=== PATIENT | male | born 1935 | race American Indian/Alaskan Native ===

== ENCOUNTER 2017-12-14 16:02 | Inpatient (IN) | payer MEDICARE, OTHER ==
[2017-12-14 16:52] VITALS: BMI 34.5
--- NOTE | 2017-12-14 17:41 | ED PDOC ---
Arrival/HPI - General Chief Complaint: Weakness/Neurological Deficit Time Seen by Provider: 12/14/17 16:39 Historian: Patient, Other (DR. Canales) - History of Present Illness Narrative History of Present Illness (Text): you were treated in the ED today for history of prostrate cancer and sent by Dr. Ocasio for having lower extremity weakness but otherwise without any nausea/vomiting/headache/dizziness/difficulty breathing/chest pain/abdomen pain/ numbness/tingling/loss of limb or bowel or bladder function/pain with urination. 12/14/17 17:39 Time/Duration: Other (2 days) Past Medical History - Provider Review Nursing Documentation Reviewed: Yes - Travel History Have you recently traveled outside [place] w/in the past 3 mons?: No - Cardiac Hx Hypertension: Yes Hx Peripheral Vascular Disease: Yes (stent in right leg) - Neurological Hx Paralysis: No - Hematological/Oncological Hx Blood Transfusions: No Hx Blood Transfusion Reaction: No - Musculoskeletal/Rheumatological Hx Arthritis: Yes - Psychiatric Hx Emotional Abuse: No Hx Physical Abuse: No Hx Substance Use: No - Anesthesia Hx Anesthesia Reactions: No Hx Malignant Hyperthermia: No - Suicidal Assessment Feels Threatened In Home Enviroment: No Family/Social History - Physician Review Nursing Documentation Reviewed: Yes Family/Social History: No Known Family HX Smoking Status: Never Smoked Hx Alcohol Use: No Hx Substance Use: No Allergies/Home Meds Allergies/Adverse Reactions: Allergies No Known Allergies Allergy (Verified 12/14/17 16:52) Home Medications: Home Meds Medication Instructions Recorded Confirmed Amlodipine/Valsartan [Exforge 10 1 tab PO DAILY 12/23/13 12/14/17 mg-160 mg] Atorvastatin [Lipitor] 10 mg PO DAILY 03/07/15 12/14/17 Doxazosin [Cardura] 4 mg PO DAILY 03/07/15 12/14/17 Nebivolol [Bystolic] 5 mg PO DAILY 03/07/15 12/14/17 Warfarin [Coumadin] 6 mg PO DAILY 03/07/15 12/14/17 Allopurinol [Zyloprim] 300 mg PO DAILY 09/19/16 12/14/17 Donepezil HCl [Aricept ODT] 5 mg PO DAILY 09/19/16 12/14/17 Losartan Potassium [Cozaar] 100 mg PO DAILY 09/19/16 12/14/17 Pregabalin [Lyrica] 75 mg PO DAILY 09/19/16 12/14/17 amLODIPine [Norvasc] 5 mg PO DAILY 09/19/16 12/14/17 Review of Systems - Review of Systems Systems not reviewed;Unavailable: Acuity of Condition Constitutional: Normal Eyes: Normal ENT: Normal Respiratory: Normal Cardiovascular: Normal Gastrointestinal: Normal Genitourinary Male: Normal Musculoskeletal: Normal Skin: Normal Neurological: Normal, Other (lower legs weakness) Endocrine: Normal Hemo/Lymphatic: Normal Psychiatric: Normal Physical Exam Vital Signs Reviewed: Yes Vital Signs Temp Pulse Resp BP Pulse Ox 12/14/17 16:49 98.2 F 51 L 18 146/93 H 98 12/14/17 16:47 97.1 F L 51 L 18 146/73 98 Temperature: Afebrile Blood Pressure: Hypertensive Pulse: Regular Respiratory Rate: Normal Appearance: Positive for: Well-Appearing, Non-Toxic, Comfortable Pain Distress: None Mental Status: Positive for: Alert and Oriented X 3 - Systems Exam Head: Present: Atraumatic, Normocephalic Pupils: Present: PERRL Extroacular Muscles: Present: EOMI Conjunctiva: Present: Normal Ears: Present: Normal Mouth: Present: Moist Mucous Membranes Pharnyx: Present: Normal Nose (External): Present: Atraumatic Nose (Internal): Present: Normal Inspection Neck: Present: Normal Range of Motion Respiratory/Chest: Present: Clear to Auscultation, Good Air Exchange Cardiovascular: Present: Regular Rate and Rhythm Abdomen: No: Tenderness, Distention, Normal Bowel Sounds, Peritoneal Signs, Rebound, Guarding, McBurney's Point Tender, Rovsing's Sign Present, Hernias, Feeding Tubes, Ostomy Tubes, Mass/Organomegaly, Scars, Other (no pulsatile masses) Back: Present: Normal Inspection Upper Extremity: Present: Normal Inspection Lower Extremity: Present: Normal Inspection Neurological: Present: GCS=15, CN II-XII Intact, Speech Normal, Motor Func Grossly Intact Skin: Present: Warm, Normal Color Psychiatric: Present: Alert, Oriented x 3, Normal Insight, Normal Concentration Medical Decision Making ED Course and Treatment: you were treated in the ED today for history of prostrate cancer and sent by Dr. Ocasio for having lower extremity weakness but otherwise without any nausea/vomiting/headache/dizziness/difficulty breathing/chest pain/abdomen pain/ numbness/tingling/loss of limb or bowel or bladder function/pain with urination. You were otherwise breathing easily, pink/moist lips, smiling with your family and talking, good strength/sensation, alert/oriented, walking easily , clear lungs, no abdomen tenderness, no fever temp 97.1, stable heart rate 51, stable breathing rate 18, excellent oxygen level 98% room air, elevated blood pressure 146/73 which we recommend repeat in 2-3 days primary care office to determine further treatment, you have blood tests no infection count 3.7, stable blood level hemoglobin 15/platelets 147, stable chemistry, heart blood test normal range, INR 1.78 and ensure you review your warfarin/coumadin dose with your primary care physician tomorrow, radiology ct head and ct lumbar spine pending, ECG sinus bradycardia, observation done in the ED with improvement, counselled to monitor symptoms, discussed with Dr. Ocasio who stated if labs, ct imaging within normal limits then can discharge home or if patient feeling weak can admit to the hospitalist service. patient states feels a little weak with his cane. 12/14/17 17:43 12/14/17 19:12 12/14/17 19:12 12/14/17 19:[address] Phillips to followup CT head and lumbar spine and disposition. 12/14/17 20:05 - Lab Interpretations Lab Results: 12/14/17 17:38 12/14/17 17:38 Lab Results 12/14/17 18:54: Urine Color Yellow, Urine Appearance Clear, Urine pH 6.0, Ur Specific [place] >= 1.030, Urine Protein Trace H, Urine Glucose (UA) Negative, Urine Ketones Trace H, Urine Blood Negative, Urine Nitrate Negative, Urine Bilirubin Small H, Urine Urobilinogen 0.2, Ur Leukocyte Esterase Negative, Urine RBC 0 - 2, Urine WBC Negative, Ur Epithelial Cells 0 - 2 12/14/17 17:38: PT 20.5 H, INR 1.78 H, APTT 34.9 12/14/17 17:38: Sodium 140, Potassium 4.0, Chloride 106, Carbon Dioxide 26, Anion Gap 12, BUN 15, Creatinine 1.0, Est GFR ( Amer) > 60, Est GFR (Non- Af Amer) > 60, Random Glucose 90, Calcium 9.7, Magnesium 1.9, Total Bilirubin 0.7, AST 25, ALT 31, Alkaline Phosphatase 85, Lactate Dehydrogenase 444, Total Creatine Kinase 181, Troponin I 0.02, Total Protein 7.1, Albumin 3.7, Globulin 3.3, Albumin/Globulin Ratio 1.1 12/14/17 17:38: WBC 3.9 L, RBC 4.44, Hgb 15.0, Hct 43.8, MCV 98.6, MCH 33.8, MCHC 34.2, RDW 12.9, Plt Count 147, MPV 11.3 H, Gran % 36.5 L, Lymph % (Auto) 44.1 H, [place] % (Auto) 13.9 H, Eos % (Auto) 5.2 H, Baso % (Auto) 0.3, Gran # 1.42 , Lymph # 1.7, [place] # 0.5, Eos # 0.2, Baso # 0.01 I have reviewed the lab results: Yes - RAD Interpretation Radiology Orders: 12/14/17 16:44 HEAD W/O CONTRAST [CT] Stat LUMBAR SPINE W/O CONTRAST [CT] Stat - EKG Interpretation Interpreted by ED Physician: Yes (sinus bradycardia, flipped ii, iii, avf, v4, v5, v6) Type: 12 lead EKG NIHSS Stroke Scale 3 - Date/Time Evaluation Performed Date Performed: 12/14/17 When Was NIHSS Performed: Baseline - How Severe is the Stroke Level of Consciousness: 0=Alert LOC to Questions: 0=Both comments correct LOC to commands: 0=Obeys both correctly Best Gaze: 0=Normal Visual: 0=No visual loss Facial: 0=Normal Motor Arm - Left: 0=No drift Motor Arm - Right: 0=No drift Motor Leg - Left: 0=No drift Motor Leg - Right: 0=No drift Limb Ataxia: 0=Absent Sensory: 0=Normal Best Language: 0=No aphasia Dysarthia: 0=Normal articulation Extinction & Inattention (Neglect): 0=Normal, no object Score: 0 Disposition/Present on Arrival - Present on Arrival Any Indicators Present on Arrival: No History of DVT/PE: No History of Uncontrolled Diabetes: No Urinary Catheter: No History of Decub. Ulcer: No History Surgical Site Infection Following: None - Disposition Referrals: Master Gómez MD [Primary Care Provider] - Follow up with primary Forms: [employer] (Belizean)
[2017-12-14 17:51] LABS: BASO # 0.01 K/mm3 (0.0-2.0); BASO % 0.3 % (0.0-3.0); EOS # 0.2 (0.0-0.7); EOS % 5.2 % (1.5-5.0); GRAN # 1.42 (1.4-6.5); GRAN % 36.5 % (50.0-68.0); LYMPH # 1.7 (1.2-3.4); LYMPH % 44.1 % (22.0-35.0); MEAN CELL VOLUME 98.6 fl (80.0-105.0); MEAN CORPUSCULAR HEMOGLOBIN 33.8 pg (25.0-35.0); MEAN CORPUSCULAR HGB CONC 34.2 g/dl (31.0-37.0); MEAN PLATELET VOLUME 11.3 fl (7.0-11.0); MONO # 0.5 (0.1-0.6); MONO % 13.9 % (1.0-6.0); RBC 4.44 10^6/uL (3.5-6.1); RED CELL DISTRIBUTION WIDTH 12.9 % (11.5-14.5); WHITE BLOOD COUNT 3.9 10^3/ul (4.5-11.0)
[2017-12-14 18:08] LABS: INR 1.78 (0.93-1.08); PARTIAL THROMBOPLASTIN TIME 34.9 Seconds (25.1-36.5); PROTHROMBIN TIME 20.5 SECONDS (9.4-12.5)
[2017-12-14 18:19] LABS: ALB/GLOB RATIO 1.1 (1.1-1.8); ALBUMIN 3.7 g/dL (3.0-4.8); ALT/SGPT 31 U/L (7-56); AST/SGOT 25 U/L (17-59); BLOOD UREA NITROGEN 15 mg/dL (7-21); CALCIUM 9.7 mg/dL (8.4-10.5); GFR AFRICAN-AMERICAN > 60; GFR NON-AFRICAN AMERICAN > 60; MAGNESIUM 1.9 mg/dL (1.7-2.2)
[2017-12-14 18:35] LABS: TROPONIN I 0.02 ng/mL
[2017-12-14 19:08] LABS: URINE BILIRUBIN SMALL (NEGATIVE); URINE BLOOD NEGATIVE (NEGATIVE); URINE GLUCOSE (UA) NEGATIVE (NEGATIVE); URINE LEUKOCYTE ESTERASE NEGATIVE Leu/uL (NEGATIVE); URINE NITRATE NEGATIVE (NEGATIVE); URINE PROTEIN TRACE mg/dL (<30 mg/dL); URINE UROBILINOGEN 0.2 E.U./dL (<1 E.U./dL)
[2017-12-14 19:13] LABS: URINE APPEARANCE CLEAR (CLEAR); URINE COLOR YELLOW (YELLOW)
[2017-12-14 19:43] LABS: URINE EPITHELIAL CELLS 0 - 2 /hpf (0-5); URINE RBC 0 - 2 /hpf (0-2); URINE WBC NEGATIVE /hpf (0-6)
--- NOTE | 2017-12-14 20:14 | CT ---
EXAM: CT Head Without Intravenous Contrast EXAM DATE/TIME: 12/14/2017 4:44 PM CLINICAL HISTORY: 82 years old, male; Signs and symptoms; Weakness, extremity; Bilateral; Additional info: 82yom, lower extremity weakness TECHNIQUE: Axial computed tomography images of the head/brain without intravenous contrast. All CT scans at this facility use one or more dose reduction techniques, viz.: automated exposure control; ma/kV adjustment per patient size (including targeted exams where dose is matched to indication; i.e. head); or iterative reconstruction technique. Coronal and sagittal reformatted images were created and reviewed. COMPARISON: No relevant prior studies available. FINDINGS: BRAIN: 1.4 cm focal area of hypodensity in the right basal ganglia, in the lentiform nucleus medially, suspicious for a lacunar infarct. This is indeterminate in age by CT. Somewhat extensive areas of low density in the white matter bilaterally. This is a nonspecific finding, but is most likely due to moderate to severe chronic small vessel ischemic changes, in a patient of this age. No significant acute abnormality identified. No acute hemorrhage seen within the brain. No acute extra-axial fluid collections visualized. No evidence of significant mass effect within the brain. VENTRICLES: No evidence of significant hydrocephalus. BONES/JOINTS: No acute fractures or other acute bony abnormality noted. SOFT TISSUES: No acute abnormality of the visualized soft tissues is seen. SINUSES: Visualized paranasal sinuses appear clear. MASTOID AIR CELLS: Mastoid air cells appear clear. IMPRESSION: - Lacunar infarct in the right basal ganglia, which is indeterminate in age by CT. If there is clinical concern for an acute lacunar infarct, consider MRI for further evaluation. - No evidence of intracranial hemorrhage or significant intracranial mass effect. - See above for remaining findings.
--- NOTE | 2017-12-14 20:27 | CT ---
EXAM: CT Lumbar Spine Without Intravenous Contrast EXAM DATE/TIME: 12/14/2017 4:44 PM CLINICAL HISTORY: 82 years old, male; Signs and symptoms; Weakness; Additional info: 82yom, lower extremity weakness TECHNIQUE: Axial computed tomography images of the lumbar spine without intravenous contrast. All CT scans at this facility use one or more dose reduction techniques, viz.: automated exposure control; ma/kV adjustment per patient size (including targeted exams where dose is matched to indication; i.e. head); or iterative reconstruction technique. Coronal and sagittal reformatted images were created and reviewed. COMPARISON: No relevant prior studies available. FINDINGS: VERTEBRAE: No acute fractures are seen. No evidence of significant vertebral subluxation. No evidence of acute vertebral compression fractures. DISCS/SPINAL CANAL/NEURAL FORAMINA: Marked, multilevel degenerative disc disease. There are large posterior osteophytes at L1-L2 centrally and on the left at T11-T12, which do appear to be causing spinal canal stenosis. Note that the spinal soft tissues, such as the intervertebral disks and contents of the spinal canal, are suboptimally evaluated by CT compared with MRI. Marked, multilevel facet joint degenerative changes of the lower lumbar spine. SOFT TISSUES: Fluid/edema is seen in the lumbar subcutaneous fat posteriorly, most likely representing dependent soft tissue edema. VASCULATURE: Vascular stent noted in the right external iliac artery REPRODUCTIVE: Evidence of prior prostatectomy and bilateral pelvic lymph node dissection. KIDNEYS AND URETERS: Low density lesion in the left kidney, most likely a cyst. 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 Bony structures appear demineralized. IMPRESSION: - No evidence of acute lumbar spine fractures or other acute bony abnormality. - Marked, multilevel degenerative disc disease. 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 - See above for remaining findings.
--- NOTE | 2017-12-14 21:48 | ED PDOC ---
Physical Exam Vital Signs Temp Pulse Resp BP Pulse Ox 12/14/17 20:19 97.5 F L 48 L 18 140/85 99 12/14/17 16:49 98.2 F 51 L 18 146/93 H 98 12/14/17 16:47 97.1 F L 51 L 18 146/73 98 Medical Decision Making ED Course and Treatment: 12/14/17 19:00 Case endorsed to me by Dr. Bobby, pending CT scan, re-assessment, and disposition. 12/14/17 22:00 CT Head: BRAIN: 1.4 cm focal area of hypodensity in the right basal ganglia, in the lentiform nucleus medially, suspicious for a lacunar infarct. This is indeterminate in age by CT. Somewhat extensive areas of low density in the white matter bilaterally. This is a nonspecific finding, but is most likely due to moderate to severe chronic small vessel ischemic changes, in a patient of this age. No significant acute abnormality identified. No acute hemorrhage seen within the brain. No acute extra-axial fluid collections visualized. No evidence of significant mass effect within the brain. VENTRICLES: No evidence of significant hydrocephalus. BONES/JOINTS: No acute fractures or other acute bony abnormality noted. SOFT TISSUES: No acute abnormality of the visualized soft tissues is seen. SINUSES: Visualized paranasal sinuses appear clear. MASTOID AIR CELLS: Mastoid air cells appear clear. IMPRESSION: - Lacunar infarct in the right basal ganglia, which is indeterminate in age by CT. If there is clinical concern for an acute lacunar infarct, consider MRI for further evaluation. - No evidence of intracranial hemorrhage or significant intracranial mass effect. - See above for remaining findings. CT Lumbar Spine: VERTEBRAE: No acute fractures are seen. No evidence of significant vertebral subluxation. No evidence of acute vertebral compression fractures. DISCS/SPINAL CANAL/NEURAL FORAMINA: Marked, multilevel degenerative disc disease. There are large posterior osteophytes at L1-L2 centrally and on the left at T11-T12, which do appear to be causing spinal canal stenosis. Note that the spinal soft tissues, such as the intervertebral disks and contents of the spinal canal, are suboptimally evaluated by CT compared with MRI. Marked, multilevel facet joint degenerative changes of the lower lumbar spine. SOFT TISSUES: Fluid/edema is seen in the lumbar subcutaneous fat posteriorly, most likely representing dependent soft tissue edema. VASCULATURE: Vascular stent noted in the right external iliac artery REPRODUCTIVE: Evidence of prior prostatectomy and bilateral pelvic lymph node dissection. KIDNEYS AND URETERS: Low density lesion in the left kidney, most likely a cyst. 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 Bony structures appear demineralized. IMPRESSION: - No evidence of acute lumbar spine fractures or other acute bony abnormality. - Marked, multilevel degenerative disc disease. 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 - See above for remaining findings. 12/14/17 22:[address] Escalante, who is aware and agrees with plan. Accepts pt in to hospitalist service. Pt will go to [facility] observation for gait instability and prostate cancer. residential lawn specialist notified. - Lab Interpretations Lab Results: 12/14/17 17:38 12/14/17 17:38 Lab Results 12/14/17 18:54: Urine Color Yellow, Urine Appearance Clear, Urine pH 6.0, Ur Specific [place] >= 1.030, Urine Protein Trace H, Urine Glucose (UA) Negative, Urine Ketones Trace H, Urine Blood Negative, Urine Nitrate Negative, Urine Bilirubin Small H, Urine Urobilinogen 0.2, Ur Leukocyte Esterase Negative, Urine RBC 0 - 2, Urine WBC Negative, Ur Epithelial Cells 0 - 2 12/14/17 17:38: PT 20.5 H, INR 1.78 H, APTT 34.9 12/14/17 17:38: Sodium 140, Potassium 4.0, Chloride 106, Carbon Dioxide 26, Anion Gap 12, BUN 15, Creatinine 1.0, Est GFR ( Amer) > 60, Est GFR (Non- Af Amer) > 60, Random Glucose 90, Calcium 9.7, Magnesium 1.9, Total Bilirubin 0.7, AST 25, ALT 31, Alkaline Phosphatase 85, Lactate Dehydrogenase 444, Total Creatine Kinase 181, Troponin I 0.02, Total Protein 7.1, Albumin 3.7, Globulin 3.3, Albumin/Globulin Ratio 1.1 12/14/17 17:38: WBC 3.9 L, RBC 4.44, Hgb 15.0, Hct 43.8, MCV 98.6, MCH 33.8, MCHC 34.2, RDW 12.9, Plt Count 147, MPV 11.3 H, Gran % 36.5 L, Lymph % (Auto) 44.1 H, [place] % (Auto) 13.9 H, Eos % (Auto) 5.2 H, Baso % (Auto) 0.3, Gran # 1.42 , Lymph # 1.7, [place] # 0.5, Eos # 0.2, Baso # 0.01 - RAD Interpretation Radiology Orders: 12/14/17 16:44 HEAD W/O CONTRAST [CT] Stat LUMBAR SPINE W/O CONTRAST [CT] Stat Disposition/Present on Arrival - Present on Arrival Any Indicators Present on Arrival: No History of DVT/PE: No History of Uncontrolled Diabetes: No Urinary Catheter: No History of Decub. Ulcer: No History Surgical Site Infection Following: None - Disposition Have Diagnosis and Disposition been Completed?: Yes Diagnosis: Gait instability, Prostate CA Disposition: HOSPITALIZED Disposition Time: 22:32 Patient Plan: Observation Patient Problems: Current Active Problems Problem Status Onset Gait instability Acute Prostate CA Acute Condition: STABLE Referrals: Master Gómez MD [Primary Care Provider] - Follow up with primary Forms: [employer] (Bulgarian)
--- NOTE | 2017-12-14 22:54 | CP.PCM.HP ---
History of Present Illness - History of Present Illness History of Present Illness: 82 year old male with past medical history of HTN, Gout, Neuropathy, prostate cancer s/p prostate removal, blood clot in leg (stent in right external iliac artery), memory loss presents to the ED with several days of weakness in the legs. Patient states that the weakness began 3 days ago and is in both legs. He states he uses a can to ambulate, but is having trouble moving and going up stairs. He says he "does not have power to lift up his legs". He denies any recent trauma, sickness, changes in appetite, or recent medication changes. Patient also denies any numbness, tingling, dizziness, headaches, change in vision, chest pain, shortness of breath, abdominal pain or any other complaints at this time. PMD: Dr. Gómez PMH:HTN, Gout, Neuropathy, prostate cancer s/p prostate removal, memory lossblood clot in leg (stent in right external iliac artery) PSH:prostate removal Allergies: NKDA Family: non contributory Social: denies alcohol, tobacco, or illicit drug use, lives with ambulates with cane Medications: donepezil, lyrica, warfarin, cardura, cozaar, lipitor, allopurinol Present on Admission - Present on Admission Any Indicators Present on Admission: Yes History of DVT/PE: Yes Review of Systems - Constitutional Constitutional: Weakness. absent: Anorexia, Chills, Fatigue, Fever, Frequent Falls, Headache, Night Sweats - EENT Eyes: absent: Blurred Vision, Change in Vision Ears: absent: Dizziness Nose/Mouth/Throat: absent: Nasal Congestion - Cardiovascular Cardiovascular: absent: Chest Pain, Dyspnea, Irregular Heart Rhythm, Lightheadedness, Palpitations, Radiating Pain, Rapid Heart Rate - Respiratory Respiratory: absent: Cough, Dyspnea - Gastrointestinal Gastrointestinal: absent: Diarrhea, Nausea, Vomiting - Genitourinary Genitourinary: absent: Dysuria - Musculoskeletal Musculoskeletal: Limited Range of Motion, Muscle Weakness. absent: Arthralgias , Numbness, Tingling - Neurological Neurological: absent: Confusion, Disequilibrium, Dizziness, Loss of Vision, Memory Loss, Syncope Past Patient History - Past Social History Smoking Status: Never Smoked - CARDIAC Hx Hypertension: Yes Hx Peripheral Vascular Disease: Yes (stent in right leg) - NEUROLOGICAL Hx Paralysis: No - HEMATOLOGICAL/ONCOLOGICAL Hx Blood Transfusions: No Hx Blood Transfusion Reaction: No - MUSCULOSKELETAL/RHEUMATOLOGICAL Hx Arthritis: Yes - PSYCHIATRIC Hx Emotional Abuse: No Hx Physical Abuse: No Hx Substance Use: No - SURGICAL HISTORY Hx Surgeries: Yes - ANESTHESIA Hx Anesthesia Reactions: No Hx Malignant Hyperthermia: No Meds Allergies/Adverse Reactions: Allergies Allergy/AdvReac Type Severity Reaction Status Date / Time No Known Allergies Allergy Verified 12/14/17 16:52 Physical Exam - Constitutional Appears: Non-toxic, No Acute Distress - Head Exam Head Exam: ATRAUMATIC, NORMAL INSPECTION, NORMOCEPHALIC - Eye Exam Eye Exam: EOMI, Normal appearance Pupil Exam: NORMAL ACCOMODATION - ENT Exam ENT Exam: Mucous Membranes Moist - Neck Exam Neck exam: Positive for: Normal Inspection - Respiratory Exam Respiratory Exam: Clear to Auscultation Bilateral, NORMAL BREATHING PATTERN - Cardiovascular Exam Cardiovascular Exam: REGULAR RHYTHM, +S1, +S2 - GI/Abdominal Exam GI & Abdominal Exam: Normal Bowel Sounds, Soft. absent: Tenderness - Extremities Exam Extremities exam: Positive for: normal capillary refill, normal inspection, pedal pulses present. Negative for: calf tenderness, pedal edema, tenderness - Neurological Exam Neurological exam: Alert, CN II-XII Intact, Oriented x3 Additional comments: upper and lower extremity sensation and motor strength intact bilaterally (5/5) Results - Vital Signs Recent Vital Signs: Last Vital Signs Temp 97.5 F L 12/14/17 20:19 Pulse 48 L 12/14/17 20:19 Resp 18 12/14/17 20:19 BP 140/85 12/14/17 20:19 Pulse Ox 99 12/14/17 20:19 - Labs Result Diagrams: 12/14/17 17:38 12/14/17 17:38 Assessment & Plan - Assessment and Plan (Free Text) Assessment: 82 year old male with past medical history of HTN, Gout, Neuropathy, prostate cancer s/p prostate removal, blood clot in leg (stent in right external iliac artery), memory loss presents to the ED with several days of weakness in the legs. Patient states that the weakness began 3 days ago and is in both legs. Plan: 1. Leg Weakness -EKG pending official read -Labs WNL -CT Lumbar Spine: no evidence of acute lumbar fracture or other bony abnormalities. Degenerative disc changes, osteoarthritic changes of hip bilaterally, stent in right external iliac artery -CT head: lacunar infarct in right basal ganglia, indeterminate age, no hemorrhage -Neurology consulted, Korya, follow recs -Physical therapy consulted -fall precautions -CK level pending -continue home lyrica 2. Gout-chronic -continue home allopurinol 3. HTN-chronic -continue home meds 4. Stent in Right External Iliac Artery -IRN theraputic -continue warfarin 6mg -daily INR -conitnue lipitor 5. Memory Loss-chronic -continue home donepezil GI/DVT Prophylaxis -Protonix -Warfarin
[2017-12-15] MEDS: Pantoprazole 40 mg EC Tab PO SCH (06:12)
[2017-12-15 07:32] LABS: BASO # 0.01 K/mm3 (0.0-2.0); BASO % 0.2 % (0.0-3.0); EOS # 0.3 (0.0-0.7); EOS % 6.9 % (1.5-5.0); GRAN # 1.35 (1.4-6.5); GRAN % 33.5 % (50.0-68.0); HEMOGLOBIN 13.8 g/dL (14.0-18.0); LYMPH # 1.9 (1.2-3.4); MEAN CELL VOLUME 98.8 fl (80.0-105.0); MEAN CORPUSCULAR HGB CONC 33.4 g/dl (31.0-37.0); MEAN PLATELET VOLUME 10.9 fl (7.0-11.0); MONO # 0.5 (0.1-0.6); MONO % 13.4 % (1.0-6.0); RBC 4.18 10^6/uL (3.5-6.1)
[2017-12-15 07:37] LABS: INR 2.08 (0.93-1.08); PROTHROMBIN TIME 24.3 SECONDS (9.4-12.5)
[2017-12-15 07:44] LABS: ALBUMIN 3.2 g/dL (3.0-4.8); ALT/SGPT 28 U/L (7-56); AST/SGOT 25 U/L (17-59); BLOOD UREA NITROGEN 12 mg/dL (7-21); CALCIUM 9.2 mg/dL (8.4-10.5); GFR AFRICAN-AMERICAN > 60; GFR NON-AFRICAN AMERICAN > 60
[2017-12-15] MEDS ORDERED: Potassium Chloride 20 mEq ER Tab PO ONE (08:50)
--- NOTE | 2017-12-15 08:51 | CP.PCM.CON ---
<Marietta Haro - Last Filed: 12/15/17 10:31> History of Present Illness - History of Present Illness History of Present Illness: PGY-[address] Barron Consult: lacuna infarct, chronic vs acute Mr Eren Alves, 82 M, with PMH HTN, Gout, Neuropathy, prostate cancer s/p prostate removal, PAD, DVT, PAD s/p stent in right external iliac artery, memory loss presents to the ED c/o lightheadedness with weakness of both legs. Both lightheadedness (no room spinning) and lower extremities weakness started last Thursday, 4 days ago. He states he uses a cane to ambulate, but is having trouble moving and going up stairs. He says he "does not have power to lift up his legs". Pt saw PMD on Thursday who advised pt to come to the hospital. ROS - (+) occasional choking while eating Denies any recent trauma, sickness, changes in appetite, skipping meds, or recent medication changes. Patient also denies any numbness, tingling, dizziness, headaches, change in vision, chest pain, shortness of breath, abdominal pain or any other complaints at this time. On Admission: NIHSS 0 bradycardia 42-52. BP 162/75 CBC significant for leukopenia at 3.9. CK normal at 181. U/A (+) ketone ECG sinus bradycardia CT Lumbar Spine: no evidence of acute lumbar fracture or other bony abnormalities. Degenerative disc changes, osteoarthritic changes of hip bilaterally, stent in right external iliac artery CT head: Possible Chronic lacunar infarct in right basal ganglia, indeterminate age, no hemorrhage PMD: Dr. Gómez PMH: HTN Gout on allopurinol Neuropathy on lyrica prostate cancer s/p prostate removal, 1994 memory loss on donepezil DVT on warfarin, PVD s/p stent in right external iliac artery PSH: prostate removal lipoma removal Allergies: NKDA Family: non contributory Social: Former smoker, quit 30years ago. Denies alcohol, or illicit drug use, lives with ambulates with cane Medications: Bistolic 5, Amlodipine/Valsartan 10-160, Losartan 100, norvasc 5 (repeat??) Lipitor 10 Doxazosin 4 Warfarin 6 Donepeil 5 Allupurinol 300 Review of Systems - Review of Systems All systems: reviewed and no additional remarkable complaints except Review of Systems: per HPI Past Patient History - Past Social History Smoking Status: Never Smoked - CARDIAC Hx Cardiac Disorders: Yes Hx Hypertension: Yes Hx Peripheral Vascular Disease: Yes (stent in right leg) - PULMONARY Hx Respiratory Disorders: No - NEUROLOGICAL Hx Neurological Disorder: No - HEENT Hx HEENT Problems: No - RENAL Hx Chronic Kidney Disease: No - ENDOCRINE/METABOLIC Hx Endocrine Disorders: No - HEMATOLOGICAL/ONCOLOGICAL Hx Blood Disorders: No - INTEGUMENTARY Hx Dermatological Problems: No - MUSCULOSKELETAL/RHEUMATOLOGICAL Hx Arthritis: Yes Hx Falls: No - GENITOURINARY/GYNECOLOGICAL Hx Genitourinary Disorders: Yes Hx Prostate Problems: Yes Other/Comment: prostate cancer - PSYCHIATRIC Hx Emotional Abuse: No Hx Physical Abuse: No Hx Substance Use: No - SURGICAL HISTORY Hx Surgeries: Yes - ANESTHESIA Hx Anesthesia Reactions: No Hx Malignant Hyperthermia: No Meds Allergies/Adverse Reactions: Allergies Allergy/AdvReac Type Severity Reaction Status Date / Time No Known Allergies Allergy Verified 12/14/17 16:52 - Medications Medications: Current Medications Allopurinol (Zyloprim) 300 mg PO DAILY [facility] Amlodipine Besylate (Norvasc) 10 mg PO DAILY [facility] Atorvastatin Calcium (Lipitor) 10 mg PO DAILY [facility] Doxazosin Mesylate (Cardura) 4 mg PO DAILY [facility] Losartan Potassium (Cozaar) 100 mg PO DAILY [facility] Non-Formulary Medication (Donepezil Hcl [Aricept Odt]) 5 mg PO DAILY [facility] Pantoprazole Sodium (Protonix Ec Tab) 40 mg PO 0600 [facility] Last Admin: 12/15/17 06:12 Dose: 40 mg Pregabalin (Lyrica) 75 mg PO DAILY [facility] Warfarin Sodium (Coumadin) 6 mg PO 1800 [facility] PRN Reason: Protocol Physical Exam - Constitutional Appears: No Acute Distress - Head Exam Head Exam: ATRAUMATIC, NORMAL INSPECTION, NORMOCEPHALIC - Eye Exam Eye Exam: EOMI, Normal appearance, PERRL. absent: Scleral icterus Pupil Exam: NORMAL ACCOMODATION - ENT Exam ENT Exam: Mucous Membranes Moist - Neck Exam Additional comments: supple - Respiratory Exam Respiratory Exam: Clear to Auscultation Bilateral, NORMAL BREATHING PATTERN. absent: Rales, Rhonchi, Wheezes - Cardiovascular Exam Cardiovascular Exam: REGULAR RHYTHM, +S1, +S2 - GI/Abdominal Exam GI & Abdominal Exam: Normal Bowel Sounds, Soft. absent: Tenderness - Extremities Exam Extremities exam: Negative for: pedal edema - Neurological Exam Neurological exam: Alert, CN II-XII Intact, Oriented x3, Reflexes Normal Additional comments: Speech: Mild slurring. tongue mid line recall: 3/3 Motor: LLE 4/5, others 5/5 sensory: intact [id number] coordination: intact Rapid alt movment: intact Results - Vital Signs Recent Vital Signs: Last Vital Signs Temp 97.9 F 12/14/17 22:50 Pulse 43 L 12/15/17 00:00 Resp 20 12/15/17 01:04 BP 158/83 H 12/15/17 00:00 Pulse Ox 98 12/15/17 00:00 - Labs Result Diagrams: 12/15/17 06:45 12/15/17 06:45 Labs: Laboratory Results - last 24 hr 12/15/17 12/15/17 12/15/17 06:45 06:45 06:45 WBC 4.0 L RBC 4.18 Hgb 13.8 L Hct 41.3 L MCV 98.8 MCH 33.0 MCHC 33.4 RDW 13.0 Plt Count 126 MPV 10.9 Gran % 33.5 L Lymph % (Auto) 46.0 H Forest % (Auto) 13.4 H Eos % (Auto) 6.9 H Baso % (Auto) 0.2 Gran # 1.35 L Lymph # 1.9 Forest # 0.5 Eos # 0.3 Baso # 0.01 PT 24.3 H INR 2.08 H Sodium 141 Potassium 3.5 L Chloride 108 H Carbon Dioxide 28 Anion Gap 9 L BUN 12 Creatinine 1.0 Est GFR ( Amer) > 60 Est GFR (Non-Af Amer) > 60 Random Glucose 88 Calcium 9.2 Total Bilirubin 0.7 AST 25 ALT 28 Alkaline Phosphatase 65 Total Protein 6.4 Albumin 3.2 Globulin 3.2 Albumin/Globulin Ratio 1.0 L Assessment & Plan - Assessment and Plan (Free Text) Plan: Mr Eren Alves, 82 M, with PMH HTN, Gout, PAD s/p stent in right external iliac artery, with Neuropathy on lyrica, prostate cancer s/p prostate removal, DVT on warfarin, memory loss presents to the ED c/o lightheadedness with weakness of both legs. ROS (+) occasional choking while eating. Physical examination review LLE motor 4/5. On admitssion, pt was bradycardic @ 42-52. BP 162/75. U/A (+) ketone. CT head: lacunar infarct in right basal ganglia, indeterminate age, no hemorrhage generalized weakend synmpta Acute R basal ganglia ischemic stroke - Remote tele - __pending MRI head; lumbar MRI - ASA - Lipitor increased to 40 - Continue warfarin for DVT prophylaxis - Keep SBP 120-130 - PT/OT/ST - Recommend subacyte acute rehab s/r/d/w Dr. Barron <Eugene Barron - Last Filed: 12/15/17 11:30> Meds - Medications Medications: Current Medications Allopurinol (Zyloprim) 300 mg PO DAILY [facility] Amlodipine Besylate (Norvasc) 10 mg PO DAILY [facility] Aspirin (Ecotrin) 81 mg PO DAILY [facility] Atorvastatin Calcium (Lipitor) 10 mg PO DAILY [facility] Doxazosin Mesylate (Cardura) 4 mg PO DAILY [facility] Losartan Potassium (Cozaar) 100 mg PO DAILY [facility] Non-Formulary Medication (Donepezil Hcl [Aricept Odt]) 5 mg PO DAILY [facility] Pantoprazole Sodium (Protonix Ec Tab) 40 mg PO 0600 [facility] Last Admin: 12/15/17 06:12 Dose: 40 mg Pregabalin (Lyrica) 75 mg PO DAILY [facility] Warfarin Sodium (Coumadin) 6 mg PO 1800 [facility] PRN Reason: Protocol Results - Vital Signs Recent Vital Signs: Last Vital Signs Temp 97.8 F 12/15/17 07:00 Pulse 60 12/15/17 07:00 Resp 20 12/15/17 07:00 BP 146/65 12/15/17 07:00 Pulse Ox 99 12/15/17 07:00 - Labs Result Diagrams: 12/15/17 06:45 12/15/17 06:45 Labs: Laboratory Results - last 24 hr 12/15/17 12/15/17 12/15/17 06:45 06:45 06:45 WBC 4.0 L RBC 4.18 Hgb 13.8 L Hct 41.3 L MCV 98.8 MCH 33.0 MCHC 33.4 RDW 13.0 Plt Count 126 MPV 10.9 Gran % 33.5 L Lymph % (Auto) 46.0 H Forest % (Auto) 13.4 H Eos % (Auto) 6.9 H Baso % (Auto) 0.2 Gran # 1.35 L Lymph # 1.9 Forest # 0.5 Eos # 0.3 Baso # 0.01 PT 24.3 H INR 2.08 H Sodium 141 Potassium 3.5 L Chloride 108 H Carbon Dioxide 28 Anion Gap 9 L BUN 12 Creatinine 1.0 Est GFR ( Amer) > 60 Est GFR (Non-Af Amer) > 60 Random Glucose 88 Calcium 9.2 Total Bilirubin 0.7 AST 25 ALT 28 Alkaline Phosphatase 65 Troponin I Total Protein 6.4 Albumin 3.2 Globulin 3.2 Albumin/Globulin Ratio 1.0 L Triglycerides Cholesterol LDL Cholesterol Direct HDL Cholesterol 12/15/17 12/15/17 06:50 07:00 WBC RBC Hgb Hct MCV MCH MCHC RDW Plt Count MPV Gran % Lymph % (Auto) Forest % (Auto) Eos % (Auto) Baso % (Auto) Gran # Lymph # Forest # Eos # Baso # PT INR Sodium Potassium Chloride Carbon Dioxide Anion Gap BUN Creatinine Est GFR ( Amer) Est GFR (Non-Af Amer) Random Glucose Calcium Total Bilirubin AST ALT Alkaline Phosphatase Troponin I 0.02 Total Protein Albumin Globulin Albumin/Globulin Ratio Triglycerides 138 Cholesterol 175 LDL Cholesterol Direct 115 HDL Cholesterol 27 L Assessment & Plan - Assessment and Plan (Free Text) Plan: SYMPTOMS SEEM SECONDARY TO DECONDITIONED STATED SUPERIMPOSED UNDERLYING LUMBOSACRAL DJD. CT HEAD INFARCT SEEMS OLD IN THE RIGHT BASAL GANGLIA. BRADYCARDIA IS PRESENT, EVALUATE WITH CARDIOLOGY. RECOMMEND: MRI BRAIN TO ASSESS FOR ANY ACUTE INFARCT/ MRI LS AND T SPINE TO SEE ANY ACUTE DISC DISEASE CAUSING SYMPTOMS. PT/TO EVALUATION. C/W ASA 81 MG AND WARFARIN WITH LIPITOR FOR STROKE PREVENTION.
[2017-12-15] MEDS ORDERED: Non Formulary Medication (Amlodipine/Valsartan [Exforge 10-160 Mg Tablet] 1 TAB) PO SCH (10:00)
[2017-12-15 10:15] LABS: HDL CHOLESTEROL 27 mg/dL (29-60)
--- NOTE | 2017-12-15 10:18 | CP.PCM.PN ---
<Jules Samaniego - Last Filed: 12/15/17 11:02> Subjective - Date & Time of Evaluation Date of Evaluation: 12/15/17 Time of Evaluation: 07:30 - Subjective Subjective: Jules Samaniego DO PGY1 - IM Progress Note Patient seen and examined at bedside. Patient was admitted yesterday for weakness. Today, patient reports that weakness started suddenly on Thursday (4 days ago) with sudden onset slurred speech. He denies vision changes, hearing loss, chest pain, shortness of breath, palpitations. Symptoms improved gradually , but he still has some weakness. Today, he feels as though his symptoms overall are improved, but still has some weakness. He denies any headache or back pain. He is having difficulty sitting up in bed due to weakness. Denies new onset urinary incontinence, saddle anaesthesia, or bowel incontinence. Objective - Vital Signs/Intake and Output Vital Signs (last 24 hours): Temp Pulse Resp BP Pulse Ox 97.8 F 60 20 146/65 99 12/15/17 07:00 12/15/17 07:00 12/15/17 07:00 12/15/17 07:00 12/15/17 07:00 Intake and Output: 12/15/17 12/15/17 06:59 18:59 Intake Total 240 Output Total 400 Balance -160 - Medications Medications: Current Medications Allopurinol (Zyloprim) 300 mg PO DAILY [facility] Amlodipine Besylate (Norvasc) 10 mg PO DAILY [facility] Aspirin (Ecotrin) 81 mg PO DAILY [facility] Atorvastatin Calcium (Lipitor) 10 mg PO DAILY [facility] Doxazosin Mesylate (Cardura) 4 mg PO DAILY [facility] Losartan Potassium (Cozaar) 100 mg PO DAILY [facility] Non-Formulary Medication (Donepezil Hcl [Aricept Odt]) 5 mg PO DAILY [facility] Pantoprazole Sodium (Protonix Ec Tab) 40 mg PO 0600 [facility] Last Admin: 12/15/17 06:12 Dose: 40 mg Pregabalin (Lyrica) 75 mg PO DAILY [facility] Warfarin Sodium (Coumadin) 6 mg PO 1800 [facility] PRN Reason: Protocol - Labs Labs: 12/15/17 06:45 12/15/17 06:45 PT 24.3 SECONDS (9.4-12.5) H 12/15/17 06:45 INR 2.08 (0.93-1.08) H 12/15/17 06:45 APTT 34.9 Seconds (25.1-36.5) 12/14/17 17:38 - Constitutional Appears: Non-toxic, No Acute Distress - Head Exam Head Exam: ATRAUMATIC, NORMOCEPHALIC - Eye Exam Eye Exam: EOMI, Normal appearance, PERRL - ENT Exam ENT Exam: Mucous Membranes Moist - Neck Exam Neck Exam: Normal Inspection - Respiratory Exam Respiratory Exam: Clear to Ausculation Bilateral, NORMAL BREATHING PATTERN - Cardiovascular Exam Cardiovascular Exam: RRR, +S1, +S2 - GI/Abdominal Exam GI & Abdominal Exam: Soft, Normal Bowel Sounds. absent: Tenderness - Extremities Exam Extremities Exam: absent: Calf Tenderness, Pedal Edema - Neurological Exam Neurological Exam: Alert, Awake, CN II-XII Intact, Oriented x3 Neuro motor strength exam: Left Upper Extremity: 4, Right Upper Extremity: 5, Left Lower Extremity: 4, Right Lower Extremity: 5 Additional comments: Left sided [id number] dysmetria Truncal weakness - Psychiatric Exam Psychiatric exam: Normal Affect, Normal Mood - Skin Skin Exam: Dry, Intact, Normal Color Assessment and Plan - Assessment and Plan (Free Text) Assessment: 82 year old male with past medical history of HTN, Gout, Neuropathy, prostate cancer s/p prostate removal, DVT, PAD s/p stent in right external iliac artery, CHF with dilated cardiomyopathy, paroxysmal atrial fibrillation, memory loss presents to the ED with several days of weakness in the legs. Patient states that the weakness began 3 days ago and is in both legs. R basal gangliar lacunar infarct noted on CT head Plan: 1. Leg Weakness -Likely 2/2 acute CVA vs spinal cord compression vs deconditioning -EKG shows sinus bradycardia; pending official read -Repeat EKG today unchanged from yesterday -CT head: lacunar infarct in right basal ganglia, indeterminate age, no hemorrhage; not present on head CT in 2014 -CT L spine: multilevel degenerative disk disease, bilateral hip OA -Subtle left sided weakness and finger to nose dysmetria on exam -Ordered brain MRI w/wo contrast and L spine MRI w/o contrast to r/o cord compression -Start ASA 81mg daily -Physical therapy eval/treat -Fall precautions -Neuro on consult, appreciate recs 2. Gout-chronic -Continue home allopurinol 3. HTN-chronic -continue home meds -hold BB; currently bradycardic 4. h/o DVT -IRN theraputic -Continue warfarin 6mg -Daily INR 5. h/o PAD -Continue statin -Start ASA, as above 6. h/o CHF with dilated cardiomyopathy -Last echo and stress test from 2015 with LVEF 35% -Currently holding BB; patient is bradycardic overnight and this morning -Continue statin -Start ASA as above -Requested cardio consult; appreciate recs 7. h/o Paroxysmal atrial fibrillation -Not currently in afib -INR therapeutic on warfarin 6. Memory Loss-chronic -Continue home donepezil GI/DVT Prophylaxis -Protonix -Warfarin Patient seen, discussed, and reviewed with attending Dr. Garces <Onesimo Garces - Last Filed: 12/15/17 18:17> Objective - Vital Signs/Intake and Output Vital Signs (last 24 hours): Temp Pulse Resp BP Pulse Ox 98.5 F 50 L 20 146/65 98 12/15/17 16:00 12/15/17 16:00 12/15/17 16:00 12/15/17 16:18 12/15/17 16:00 - Medications Medications: Current Medications Allopurinol (Zyloprim) 300 mg PO DAILY [facility] Last Admin: 12/15/17 16:19 Dose: 300 mg Amlodipine Besylate (Norvasc) 10 mg PO DAILY [facility] Last Admin: 12/15/17 16:18 Dose: 10 mg Aspirin (Ecotrin) 81 mg PO DAILY [facility] Last Admin: 12/15/17 16:19 Dose: 81 mg Atorvastatin Calcium (Lipitor) 80 mg PO DIN [facility] Doxazosin Mesylate (Cardura) 4 mg PO DAILY [facility] Last Admin: 12/15/17 13:34 Dose: Not Given Losartan Potassium (Cozaar) 100 mg PO DAILY [facility] Last Admin: 12/15/17 16:19 Dose: 100 mg Non-Formulary Medication (Donepezil Hcl [Aricept Odt]) 5 mg PO DAILY [facility] Last Admin: 12/15/17 16:20 Dose: Not Given Pantoprazole Sodium (Protonix Ec Tab) 40 mg PO 0600 [facility] Last Admin: 12/15/17 06:12 Dose: 40 mg Pregabalin (Lyrica) 75 mg PO DAILY [facility] Last Admin: 12/15/17 16:20 Dose: 75 mg Warfarin Sodium (Coumadin) 6 mg PO 1800 [facility] PRN Reason: Protocol - Labs Labs: PT 24.3 SECONDS (9.4-12.5) H 12/15/17 06:45 INR 2.08 (0.93-1.08) H 12/15/17 06:45 APTT 34.9 Seconds (25.1-36.5) 12/14/17 17:38 Attending/Attestation - Attestation I have personally seen and examined this patient.: Yes I have fully participated in the care of the patient.: Yes I have reviewed all pertinent clinical information, including history, physical exam and plan: Yes Notes (Text): I have seen and examine the patient at bedside. Agree with the above note with the following additions/ exceptions: Briefly this is 82 year old male with history of HTN, gout, neuropathy, prostate cancer s/p surgery, DVT, PAD s/p stent in right external iliac artery, CHF(EF35%), paroxysmal atrial fibrillation , mild cognitive impairment who came for evaluation of generalized weakness. CT head revealed right BG launar infarct indeterminate age. MRI brain revealed acute right basal ganglia infarct. Speech and swallow eval. Start aspirin and increase lipitor. Continue coumadin. MRI spine pending. PT eval pending. VS revealed bradycardia however I was informed that HR was charted wrong.Currently , HR is 60-65. Upon discharge patient will follow up with Dr Cuevas. Dr Onesimo Garces
[2017-12-15 10:26] LABS: LDL CHOLESTEROL 115 mg/dL (0-129)
--- NOTE | 2017-12-15 10:51 | CARD ---
APPROVED REPORT EKG Measurement Heart [id number] [id number] <Conclusion> Sinus bradycardia with premature atrial complexes Left axis deviation Voltage criteria for left ventricular hypertrophy T wave abnormality, consider lateral ischemia Abnormal ECG
--- NOTE | 2017-12-15 10:59 | CARD ---
APPROVED REPORT EKG Measurement Heart [id number] [id number] <Conclusion> Sinus bradycardia Left axis deviation Voltage criteria for left ventricular hypertrophy T wave abnormality, consider inferolateral ischemia Abnormal ECG
[2017-12-15] MEDS ORDERED: Gadodiamide 287 MG/ML VIAL (15ML) IV ONE (11:33)
--- NOTE | 2017-12-15 11:54 | MRI ---
PROCEDURE: MR LUMBAR SPINE WITHOUT CONTRAST HISTORY: bilateral leg weakness COMPARISON: None available. TECHNIQUE: Multiecho multiplanar sequences were performed through the lumbar spine without the use of intravenous contrast. FINDINGS: Normal lumbar lordosis. Vertebral body heights are preserved. Marrow signal unremarkable. Conus medullaris unremarkable at the level of T12 Paraspinal soft tissues are unremarkable. T12-L1: No disc herniation, spinal canal stenosis or neural foraminal narrowing. L1-2: There is a moderate disc bulge L2-3: There is severe disc degeneration with loss of disc height and disc bulging. There is a mild degree of central stenosis and mild to moderate foraminal stenosis L3-4: Severe disc degeneration with loss of disc height and disc bulging right greater than left. Severe foraminal stenosis. Moderate central stenosis L4-5: Severe disc bulge. Facet arthropathy. Moderate to severe bilateral foraminal stenosis. Moderate central stenosis L5-S1: Moderate disc bulge with bilateral foraminal stenosis. No significant central stenosis. OTHER FINDINGS: None. IMPRESSION: Multilevel degenerative changes. Moderate central stenosis at L3-4 and L4-5
--- NOTE | 2017-12-15 12:05 | MRI ---
PROCEDURE: MR THORACIC SPINE WITHOUT CONTRAST HISTORY: b/l lower extremity wekaness. COMPARISON: None available. TECHNIQUE: Multiecho multiplanar sequences were performed through the thoracic spine without the use of intravenous contrast. FINDINGS: ALIGNMENT: Normal thoracic spinal alignment. Normal thoracic kyphosis. VERTEBRA: Vertebral body height are preserved. MARROW: Marrow signal unremarkable. PARASPINAL SOFT TISSUES: Unremarkable. CORD: Unremarkable thoracic cord. No volume loss, signal abnormality or syrinx. DISCS: There is multilevel disc degeneration with desiccation of the disc material and loss of disc height. There is a mild disc bulge at T11-12 OTHER FINDINGS: None. IMPRESSION: Mild multilevel disc degeneration. No evidence of spinal stenosis or vertebral compression fracture. The cord is unremarkable
--- NOTE | 2017-12-15 12:16 | MRI ---
PROCEDURE: MRI BRAIN WITH AND WITHOUT CONTRAST HISTORY: r/o cva COMPARISON: None. TECHNIQUE: Multiplanar, multisequence MR images of the brain were obtained with and without intravenous contrast enhancement. 15 cc of Omniscan FINDINGS: HEMORRHAGE: None DWI: There is an 8 x 14 mm infarct in the right basal ganglia. This is seen on image 13 of series 3 BRAIN PARENCHYMA: No mass,mass effect or edema. Severe chronic microvascular changes are seen in the periventricular white matter. ENHANCEMENT: No abnormal intracranial enhancement. VENTRICLES: Unremarkable. No hydrocephalus. CRANIUM: Unremarkable. ORBITS: Grossly unremarkable. PARANASAL SINUSES/MASTOIDS: Clear VASCULAR SYSTEM: Skull base flow voids intact. OTHER FINDINGS: None . IMPRESSION: Acute 8 x 14 mm infarct in the right basal ganglia in the distribution of the proximal MCA
[2017-12-15 13:37] LABS: FOLATE 7.7 ng/mL
[2017-12-15] MEDS: DONEPEZIL HCL 5 MG PO SCH (16:20)
--- NOTE | 2017-12-15 21:06 | CON ---
DATE: 12/15/2017 CARDIOLOGY CONSULTATION HISTORY OF PRESENT ILLNESS: The patient is an 82-year-old male who presents with lower extremity weakness consistent with CVA. Patient's past medical history is notable for hypertension, hypercholesterolemia. The patient is currently on Coumadin at home. He also suffers from a cardiomyopathy and coronary artery disease. His last stress test was in September 2016 in which his ejection fraction was measured to be 35%. The ischemic areas in his heart were improved or otherwise unchanged. He denies chest pain, denies shortness of breath. SOCIAL HISTORY: The patient is not an active smoker. REVIEW OF SYSTEMS: 14-point review of systems is reviewed in detail. No cardiac symptomatology is noted. PHYSICAL EXAMINATION: VITAL SIGNS: Blood pressure 146/65, heart rate in the 60s. NECK: Negative JVD. LUNGS: Without rales. HEART: S1, S2. EXTREMITIES: Without edema. EKG shows normal sinus rhythm with diffuse ST-T changes. Hemoglobin is 13.8. Chemistries: BUN and creatinine unremarkable. Troponins are negative x2. IMPRESSION: 1. New onset lower extremity weakness. 2. Rule out cerebrovascular accident. 3. Hypertension. 4. Ischemic dilated cardiomyopathy. 4. Stable angina. 5. Coronary artery disease. 6. Hypercholesterolemia. Given these findings, the patient's cardiac status appears stable. We will await for the neurologic workup at this time. We will continue anticoagulation. Dalton Sheets MD
[2017-12-16] MEDS: Pantoprazole 40 mg EC Tab PO SCH (05:02)
[2017-12-16 06:47] LABS: BASO # 0.01 K/mm3 (0.0-2.0); BASO % 0.3 % (0.0-3.0); EOS # 0.3 (0.0-0.7); EOS % 7.3 % (1.5-5.0); GRAN # 1.22 (1.4-6.5); GRAN % 31.5 % (50.0-68.0); LYMPH # 1.8 (1.2-3.4); LYMPH % 46.9 % (22.0-35.0); MEAN CELL VOLUME 99.1 fl (80.0-105.0); MEAN CORPUSCULAR HEMOGLOBIN 33.2 pg (25.0-35.0); MEAN CORPUSCULAR HGB CONC 33.5 g/dl (31.0-37.0); MEAN PLATELET VOLUME 11.5 fl (7.0-11.0); MONO # 0.5 (0.1-0.6); RBC 4.52 10^6/uL (3.5-6.1); WHITE BLOOD COUNT 3.9 10^3/ul (4.5-11.0)
[2017-12-16 07:30] LABS: ALB/GLOB RATIO 1.1 (1.1-1.8); ALBUMIN 3.5 g/dL (3.0-4.8); ALT/SGPT 29 U/L (7-56); AST/SGOT 29 U/L (17-59); BLOOD UREA NITROGEN 10 mg/dL (7-21); CALCIUM 9.6 mg/dL (8.4-10.5); GFR AFRICAN-AMERICAN > 60; GFR NON-AFRICAN AMERICAN > 60
--- NOTE | 2017-12-16 08:29 | CP.PCM.PN ---
<Marietta Haro - Last Filed: 12/16/17 09:54> Subjective - Date & Time of Evaluation Date of Evaluation: 12/16/17 Time of Evaluation: 08:27 - Subjective Subjective: Neurology PGY-[address] Barron Pt states that strength is getting better. Lower back pain is controlled by lyrica Objective - Vital Signs/Intake and Output Vital Signs (last 24 hours): Temp Pulse Resp BP Pulse Ox 98.5 F 53 L 20 146/65 98 12/15/17 16:00 12/16/17 04:30 12/15/17 16:00 12/15/17 16:18 12/15/17 16:00 Intake and Output: 12/16/17 12/16/17 06:59 18:59 Intake Total 120 0 Output Total 300 900 Balance -180 -900 - Medications Medications: Current Medications Allopurinol (Zyloprim) 300 mg PO DAILY [facility] Last Admin: 12/15/17 16:19 Dose: 300 mg Amlodipine Besylate (Norvasc) 10 mg PO DAILY [facility] Last Admin: 12/15/17 16:18 Dose: 10 mg Aspirin (Ecotrin) 81 mg PO DAILY [facility] Last Admin: 12/15/17 16:19 Dose: 81 mg Atorvastatin Calcium (Lipitor) 80 mg PO DIN [facility] Last Admin: 12/15/17 18:17 Dose: 80 mg Doxazosin Mesylate (Cardura) 4 mg PO DAILY [facility] Last Admin: 12/15/17 13:34 Dose: Not Given Losartan Potassium (Cozaar) 100 mg PO DAILY [facility] Last Admin: 12/15/17 16:19 Dose: 100 mg Non-Formulary Medication (Donepezil Hcl [Aricept Odt]) 5 mg PO DAILY [facility] Last Admin: 12/15/17 16:20 Dose: Not Given Pantoprazole Sodium (Protonix Ec Tab) 40 mg PO 0600 [facility] Last Admin: 12/16/17 05:02 Dose: 40 mg Pregabalin (Lyrica) 75 mg PO DAILY [facility] Last Admin: 12/15/17 16:20 Dose: 75 mg Warfarin Sodium (Coumadin) 6 mg PO 1800 [facility] PRN Reason: Protocol Last Admin: 12/15/17 18:16 Dose: 6 mg - Labs Labs: 12/16/17 06:00 12/16/17 06:00 PT 24.3 SECONDS (9.4-12.5) H 12/15/17 06:45 INR 2.08 (0.93-1.08) H 12/15/17 06:45 APTT 34.9 Seconds (25.1-36.5) 12/14/17 17:38 - Constitutional Appears: No Acute Distress - Head Exam Head Exam: ATRAUMATIC, NORMAL INSPECTION, NORMOCEPHALIC - Eye Exam Eye Exam: EOMI, Normal appearance, PERRL. absent: Scleral icterus Pupil Exam: NORMAL ACCOMODATION - ENT Exam ENT Exam: Mucous Membranes Moist - Neck Exam Additional comments: supple - Respiratory Exam Respiratory Exam: Clear to Ausculation Bilateral, NORMAL BREATHING PATTERN - Cardiovascular Exam Cardiovascular Exam: REGULAR RHYTHM, +S1, +S2. absent: Murmur - GI/Abdominal Exam GI & Abdominal Exam: Soft, Normal Bowel Sounds. absent: Tenderness - Neurological Exam Neurological Exam: Alert, Awake, Oriented x3 Additional comments: Speech: Minimal slurring Motor: LLE 4+/5 LUE 5/5 RUE, RLE 5/5 sensory: intact vaorat-be-avpu coordination: intact Rapid alt movement: intact - Psychiatric Exam Psychiatric exam: Normal Affect, Normal Mood - Skin Skin Exam: Dry, Warm Assessment and Plan - Assessment and Plan (Free Text) Plan: Mr Eren Alves, 82 M, with PMH HTN, Gout, PAD s/p stent in right external iliac artery, with Neuropathy on lyrica, prostate cancer s/p prostate removal, DVT on warfarin, memory loss presents to the ED c/o lightheadedness with weakness of both legs. ROS (+) occasional choking while eating. Physical examination review LLE motor 4/5. On admitssion, pt was bradycardic @ 42-52. BP 162/75. U/A (+) ketone. CT head: lacunar infarct in right basal ganglia, indeterminate age, no hemorrhage 1. Acute R basal ganglia ischemic stroke - MRI head: Acute 8x14mm infarct in R basa ganlia in proximal MCA distribution - Continue ASA 81; Lipitor increased to 40; Continue warfarin for stroke prevention - Keep SBP 120-130 - Maintain glucose 140-180 - Continue PT/OT - Recommend subacute rehab 2. Bradycardia, symptomatic vs non-symptomatic Ischemic dilated cardiomyopathy - Cardiology referral - Tele: Sinus bradycardia 3. Weakness of both legs possibly secondary to deconditioned stated superimposed underlying lumbosacral DJD and lumbar central stenosis - MRI lumbar: Moderate central stenosis L3-L5 - MRI thoracic: unremarkable s/r/d/w Dr. Barron <Eugene Barron - Last Filed: 12/16/17 11:42> Objective - Vital Signs/Intake and Output Vital Signs (last 24 hours): Temp Pulse Resp BP Pulse Ox 98.5 F 56 L 20 133/62 98 12/15/17 16:00 12/16/17 10:00 12/16/17 06:00 12/16/17 09:12 12/16/17 06:00 Intake and Output: 12/16/17 12/16/17 06:59 18:59 Intake Total 120 0 Output Total 300 900 Balance -180 -900 - Medications Medications: Current Medications Allopurinol (Zyloprim) 300 mg PO DAILY [facility] Last Admin: 12/16/17 09:12 Dose: 300 mg Amlodipine Besylate (Norvasc) 10 mg PO DAILY [facility] Last Admin: 12/16/17 09:12 Dose: 10 mg Aspirin (Ecotrin) 81 mg PO DAILY [facility] Last Admin: 12/16/17 09:11 Dose: 81 mg Atorvastatin Calcium (Lipitor) 80 mg PO DIN [facility] Last Admin: 12/15/17 18:17 Dose: 80 mg Doxazosin Mesylate (Cardura) 4 mg PO DAILY [facility] Last Admin: 12/16/17 09:10 Dose: 4 mg Losartan Potassium (Cozaar) 100 mg PO DAILY [facility] Last Admin: 12/16/17 09:11 Dose: 100 mg Non-Formulary Medication (Donepezil Hcl [Aricept Odt]) 5 mg PO DAILY [facility] Last Admin: 12/16/17 09:11 Dose: Not Given Pantoprazole Sodium (Protonix Ec Tab) 40 mg PO 0600 [facility] Last Admin: 12/16/17 05:02 Dose: 40 mg Pregabalin (Lyrica) 75 mg PO DAILY [facility] Last Admin: 12/16/17 09:11 Dose: 75 mg Warfarin Sodium (Coumadin) 6 mg PO 1800 [facility] PRN Reason: Protocol Last Admin: 12/15/17 18:16 Dose: 6 mg - Labs Labs: 12/16/17 06:00 12/16/17 06:00 PT 24.3 SECONDS (9.4-12.5) H 01/30/18 06:45 INR 2.08 (0.93-1.08) H 12/15/17 06:45 APTT 34.9 Seconds (25.1-36.5) 12/14/17 17:38 Attending/Attestation - Attestation I have personally seen and examined this patient.: Yes I have fully participated in the care of the patient.: Yes I have reviewed all pertinent clinical information, including history, physical exam and plan: Yes
[2017-12-16] MEDS: DONEPEZIL HCL 5 MG PO SCH (09:11)
--- NOTE | 2017-12-16 15:24 | PN ---
DATE: 12/16/2017 CARDIOLOGY FOLLOW SUBJECTIVE: The patient's lower extremities are much better. No shortness of breath. PHYSICAL EXAMINATION VITAL SIGNS: Blood pressure is 133/62, heart rates in the 60s, normal sinus rhythm. NECK: Negative JVD. LUNGS: Without rales. HEART: S1 and S2. EXTREMITIES: Without edema. LABORATORY DATA: Hemoglobin is 15. Chemistries: BUN and creatinine are unremarkable. IMPRESSION AND PLAN: 1. Status post transient ischemic attack. 2. Dilated cardiomyopathy. 3. Stable angina. 4. Coronary artery disease. 5. Hypercholesterolemia. Given these findings, the patient's neurologic findings are better. No cardiac issues at this time. We will discontinue telemetry today. Dalton Sheets MD
[2017-12-16] MEDS ORDERED: cefTRIAXone 1 gm 1 GM/100 ML BAG IVPB SCH (15:30)
--- NOTE | 2017-12-16 15:39 | CP.PCM.PN ---
<Jules Samaniego - Last Filed: 12/16/17 15:35> Subjective - Date & Time of Evaluation Date of Evaluation: 12/16/17 Time of Evaluation: 07:30 - Subjective Subjective: Jules Aden DO PGY1 - IM Progress Note Patient seen and examined at bedside. Today, patient reports slight improvement in his weakness. He denies any chest pain, palpitations, shortness of breath, nausea, abdominal pain, dysuria. He continues having difficulty sitting up in bed due to weakness. In the afternoon, nurse called due to bradycardia, noted when PT came to evaluate patient. Patient denied any lightheadedness/dizziness, chest pain, palpitations, confusion, or shortness of breath. Objective - Vital Signs/Intake and Output Vital Signs (last 24 hours): Temp Pulse Resp BP Pulse Ox 98.5 F 56 L 20 133/62 98 12/15/17 16:00 12/16/17 10:00 12/16/17 06:00 12/16/17 09:12 12/16/17 06:00 Intake and Output: 12/16/17 12/16/17 06:59 18:59 Intake Total 120 740 Output Total 300 900 Balance -180 -160 - Medications Medications: Current Medications Allopurinol (Zyloprim) 300 mg PO DAILY [facility] Last Admin: 12/16/17 09:12 Dose: 300 mg Amlodipine Besylate (Norvasc) 10 mg PO DAILY [facility] Last Admin: 12/16/17 09:12 Dose: 10 mg Aspirin (Ecotrin) 81 mg PO DAILY [facility] Last Admin: 12/16/17 09:11 Dose: 81 mg Atorvastatin Calcium (Lipitor) 80 mg PO DIN [facility] Last Admin: 12/15/17 18:17 Dose: 80 mg Doxazosin Mesylate (Cardura) 4 mg PO DAILY [facility] Last Admin: 12/16/17 09:10 Dose: 4 mg Ceftriaxone Sodium (Rocephin 1 Gram Ivpb) 1 gm in 100 mls @ 100 mls/hr IVPB DAILY [facility] PRN Reason: Protocol Losartan Potassium (Cozaar) 100 mg PO DAILY [facility] Last Admin: 12/16/17 09:11 Dose: 100 mg Non-Formulary Medication (Donepezil Hcl [Aricept Odt]) 5 mg PO DAILY [facility] Last Admin: 12/16/17 09:11 Dose: Not Given Pantoprazole Sodium (Protonix Ec Tab) 40 mg PO 0600 [facility] Last Admin: 12/16/17 05:02 Dose: 40 mg Pregabalin (Lyrica) 75 mg PO DAILY [facility] Last Admin: 12/16/17 09:11 Dose: 75 mg Warfarin Sodium (Coumadin) 6 mg PO 1800 [facility] PRN Reason: Protocol Last Admin: 12/15/17 18:16 Dose: 6 mg - Labs Labs: 12/16/17 06:00 12/16/17 06:00 PT 24.3 SECONDS (9.4-12.5) H 12/15/17 06:45 INR 2.08 (0.93-1.08) H 12/15/17 06:45 APTT 34.9 Seconds (25.1-36.5) 12/14/17 17:38 - Constitutional Appears: Non-toxic, No Acute Distress - Head Exam Head Exam: ATRAUMATIC, NORMOCEPHALIC - Eye Exam Eye Exam: EOMI, Normal appearance, PERRL Pupil Exam: NORMAL ACCOMODATION - ENT Exam ENT Exam: Mucous Membranes Moist - Neck Exam Neck Exam: Normal Inspection - Respiratory Exam Respiratory Exam: Clear to Ausculation Bilateral, NORMAL BREATHING PATTERN - Cardiovascular Exam Additional comments: On initial exam in AM: RRR, normal S1, S2. Distal pulses equal bilaterally On repeat exam when called by nurse in afternoon: IRR, bradycardia, normal S1, S2. Distal pulses equal bilaterally - GI/Abdominal Exam GI & Abdominal Exam: Soft, Normal Bowel Sounds. absent: Tenderness - Extremities Exam Extremities Exam: absent: Calf Tenderness, Pedal Edema - Neurological Exam Neurological Exam: Alert, Awake, Oriented x3 Neuro motor strength exam: Left Upper Extremity: 4, Right Upper Extremity: 5, Left Lower Extremity: 4, Right Lower Extremity: 5 - Psychiatric Exam Psychiatric exam: Normal Affect, Normal Mood - Skin Skin Exam: Dry, Intact, Normal Color Assessment and Plan - Assessment and Plan (Free Text) Assessment: 82 year old male with past medical history of HTN, Gout, Neuropathy, prostate cancer s/p prostate removal, DVT, PAD s/p stent in right external iliac artery, CHF with dilated cardiomyopathy, paroxysmal atrial fibrillation, memory loss presents to the ED with several days of weakness in the legs. Patient states that the weakness began 3 days prior to admission and is in both legs. R basal gangliar lacunar infarct noted on CT head; acute infarct noted on MRI Plan: 1. Leg Weakness -Likely 2/2 acute CVA vs spinal cord compression vs deconditioning -CT head: lacunar infarct in right basal ganglia, indeterminate age, no hemorrhage; not present on head CT in 2015 -Brain MRI shows acute 8 x 14 mm infarct in the right basal ganglia in the distribution of the proximal MCA -L spine MRI shows Multilevel degenerative changes, moderate central stenosis at L3-4 and L4-5, and moderate/severe foraminal stenosis at L3-4, L4-5, and L5- S1 -T spine MRI shows Mild multilevel disc degeneration. No evidence of spinal stenosis or vertebral compression fracture. The cord is unremarkable -Neuro exam unchanged since yesterday -Continue ASA 81mg daily; Increased Atorvastatin to 80mg daily -Physical therapy eval/treat -Fall precautions -Neuro on consult, appreciate recs 2. h/o Paroxysmal atrial fibrillation -Patietn has been intermittently bradycardic since yesterday night, despite stopping Bystolic -Patient had episode of marked bradycardia today, after he was taken off yarn tester, though he remained asymptomatic -STAT EKG obtained, significant for sinus rhythm with frequent PVC's and patient had irregular rhythm on exam, which was different from prior exams. -Transferred patient back to remote telemetry. -Repeat EKG in AM -INR therapeutic on warfarin 3. HTN-chronic -continue home meds -hold BB; currently bradycardic 4. h/o DVT -IRN theraputic -Continue warfarin 6mg -Daily INR 5. h/o PAD -Continue statin -Start ASA, as above 6. h/o CHF with dilated cardiomyopathy -Last echo and stress test from 2015 with LVEF 35% -Currently holding BB; patient is bradycardic overnight and this morning -Continue statin -Start ASA as above -Requested cardio consult; appreciate recs 7. Gout-chronic -Continue home allopurinol 6. Memory Loss-chronic -Continue home donepezil GI/DVT Prophylaxis -Protonix -Warfarin Patient seen, discussed, and reviewed with attending Dr. Garces <Onesimo Garces - Last Filed: 12/16/17 16:29> Objective - Vital Signs/Intake and Output Vital Signs (last 24 hours): Temp Pulse Resp BP Pulse Ox 98.5 F 56 L 20 133/62 98 12/15/17 16:00 12/16/17 10:00 12/16/17 06:00 12/16/17 09:12 12/16/17 06:00 Intake and Output: 12/16/17 12/16/17 06:59 18:59 Intake Total 120 740 Output Total 300 900 Balance -180 -160 - Medications Medications: Current Medications Allopurinol (Zyloprim) 300 mg PO DAILY [facility] Last Admin: 12/16/17 09:12 Dose: 300 mg Amlodipine Besylate (Norvasc) 10 mg PO DAILY [facility] Last Admin: 12/16/17 09:12 Dose: 10 mg Aspirin (Ecotrin) 81 mg PO DAILY [facility] Last Admin: 12/16/17 09:11 Dose: 81 mg Atorvastatin Calcium (Lipitor) 80 mg PO DIN [facility] Last Admin: 12/15/17 18:17 Dose: 80 mg Doxazosin Mesylate (Cardura) 4 mg PO DAILY [facility] Last Admin: 12/16/17 09:10 Dose: 4 mg Losartan Potassium (Cozaar) 100 mg PO DAILY [facility] Last Admin: 12/16/17 09:11 Dose: 100 mg Non-Formulary Medication (Donepezil Hcl [Aricept Odt]) 5 mg PO DAILY [facility] Last Admin: 12/16/17 09:11 Dose: Not Given Pantoprazole Sodium (Protonix Ec Tab) 40 mg PO 0600 [facility] Last Admin: 12/16/17 05:02 Dose: 40 mg Pregabalin (Lyrica) 75 mg PO DAILY [facility] Last Admin: 12/16/17 09:11 Dose: 75 mg Warfarin Sodium (Coumadin) 6 mg PO 1800 [facility] PRN Reason: Protocol Last Admin: 12/15/17 18:16 Dose: 6 mg - Labs Labs: 12/16/17 06:00 12/16/17 06:00 PT 24.3 SECONDS (9.4-12.5) H 12/15/17 06:45 INR 2.08 (0.93-1.08) H 12/15/17 06:45 APTT 34.9 Seconds (25.1-36.5) 12/14/17 17:38 Attending/Attestation - Attestation I have personally seen and examined this patient.: Yes I have fully participated in the care of the patient.: Yes I have reviewed all pertinent clinical information, including history, physical exam and plan: Yes Notes (Text): I have seen and examine the patient at bedside. Agree with the above note with the following additions/ exceptions: Briefly this is 82 year old male with history of HTN, gout, neuropathy, prostate cancer s/p surgery, DVT, PAD s/p stent in right external iliac artery, CHF (EF35%), paroxysmal atrial fibrillation, mild cognitive impairment who came for evaluation of generalized weakness. CT head revealed right BG launar infarct indeterminate age. MRI brain revealed acute right basal ganglia infarct. Speech and swallow eval. Continue aspirin, lipitor and coumadin. MRI spine reviewed. PT recommeded JADE. VS revealed bradycardia. Bystolic is on hold. Will discuss [facility]. Urine culture pending. Will continue telemetry monitoring. Currently, HR is 60- 65. Upon discharge patient will follow up with Dr Cuevas. Dr Onesimo Garces
[2017-12-16 17:27] LABS: BLOOD UREA NITROGEN 12 mg/dL (7-21); CALCIUM 9.8 mg/dL (8.4-10.5); GFR AFRICAN-AMERICAN > 60; GFR NON-AFRICAN AMERICAN 58; MAGNESIUM 1.9 mg/dL (1.7-2.2)
--- NOTE | 2017-12-16 18:10 | CARD ---
APPROVED REPORT EKG Measurement Heart [id number] <Conclusion> Sinus rhythm with frequent premature ventricular complexes in a pattern of bigeminy Left axis deviation Moderate voltage criteria for LVH, may be normal variant T wave abnormality, consider lateral ischemia Abnormal ECG
[2017-12-17] MEDS: Pantoprazole 40 mg EC Tab PO SCH (05:54)
[2017-12-17 06:29] LABS: BASO # 0.01 K/mm3 (0.0-2.0); BASO % 0.3 % (0.0-3.0); EOS # 0.3 (0.0-0.7); EOS % 7.3 % (1.5-5.0); GRAN # 1.14 (1.4-6.5); GRAN % 29.8 % (50.0-68.0); HEMOGLOBIN 14.5 g/dL (14.0-18.0); LYMPH # 1.8 (1.2-3.4); LYMPH % 46.9 % (22.0-35.0); MEAN CELL VOLUME 97.7 fl (80.0-105.0); MEAN CORPUSCULAR HGB CONC 33.7 g/dl (31.0-37.0); MEAN PLATELET VOLUME 11.4 fl (7.0-11.0); MONO # 0.6 (0.1-0.6); MONO % 15.7 % (1.0-6.0); RBC 4.4 10^6/uL (3.5-6.1); RED CELL DISTRIBUTION WIDTH 12.7 % (11.5-14.5); WHITE BLOOD COUNT 3.8 10^3/ul (4.5-11.0)
[2017-12-17 06:53] VITALS: RESP 20
[2017-12-17 08:01] LABS: ALB/GLOB RATIO 1.1 (1.1-1.8); ALBUMIN 3.4 g/dL (3.0-4.8); ALT/SGPT 27 U/L (7-56); AST/SGOT 34 U/L (17-59); BLOOD UREA NITROGEN 13 mg/dL (7-21); CALCIUM 9.3 mg/dL (8.4-10.5); GFR AFRICAN-AMERICAN > 60; GFR NON-AFRICAN AMERICAN > 60
--- NOTE | 2017-12-17 08:32 | CP.PCM.PN ---
<Marietta Haro - Last Filed: 12/17/17 08:35> Subjective - Date & Time of Evaluation Date of Evaluation: 12/17/17 Time of Evaluation: 08:29 - Subjective Subjective: Neurology PGY-[address] Barron Pt states that weakness has been improving. Pt did not feel CP, dizziness, SOB for bradycardia. Noted Leukopenia at 3.8. Objective - Vital Signs/Intake and Output Vital Signs (last 24 hours): Temp Pulse Resp BP Pulse Ox 98 F 54 L 20 115/48 L 97 12/17/17 00:00 12/17/17 06:00 12/17/17 00:00 12/17/17 00:00 12/17/17 00:00 Intake and Output: 12/17/17 12/17/17 06:59 18:59 Intake Total 420 Output Total 825 Balance -405 - Medications Medications: Current Medications Allopurinol (Zyloprim) 300 mg PO DAILY [facility] Last Admin: 12/16/17 09:12 Dose: 300 mg Amlodipine Besylate (Norvasc) 10 mg PO DAILY [facility] Last Admin: 12/16/17 09:12 Dose: 10 mg Aspirin (Ecotrin) 81 mg PO DAILY [facility] Last Admin: 12/16/17 09:11 Dose: 81 mg Atorvastatin Calcium (Lipitor) 80 mg PO DIN [facility] Last Admin: 12/16/17 17:03 Dose: 80 mg Doxazosin Mesylate (Cardura) 4 mg PO DAILY [facility] Last Admin: 12/16/17 09:10 Dose: 4 mg Losartan Potassium (Cozaar) 100 mg PO DAILY [facility] Last Admin: 12/16/17 09:11 Dose: 100 mg Non-Formulary Medication (Donepezil Hcl [Aricept Odt]) 5 mg PO DAILY [facility] Last Admin: 12/16/17 09:11 Dose: Not Given Pantoprazole Sodium (Protonix Ec Tab) 40 mg PO 0600 [facility] Last Admin: 12/17/17 05:54 Dose: 40 mg Pregabalin (Lyrica) 75 mg PO DAILY [facility] Last Admin: 12/16/17 09:11 Dose: 75 mg Warfarin Sodium (Coumadin) 6 mg PO 1800 [facility] PRN Reason: Protocol Last Admin: 12/16/17 17:03 Dose: 6 mg - Labs Labs: 12/17/17 05:45 12/17/17 05:45 PT 24.3 SECONDS (9.4-12.5) H 12/15/17 06:45 INR 2.08 (0.93-1.08) H 12/15/17 06:45 APTT 34.9 Seconds (25.1-36.5) 12/14/17 17:38 - Constitutional Appears: No Acute Distress - Head Exam Head Exam: ATRAUMATIC, NORMAL INSPECTION, NORMOCEPHALIC - Eye Exam Eye Exam: EOMI, Normal appearance, PERRL - ENT Exam ENT Exam: Mucous Membranes Moist - Neck Exam Additional comments: supple - Respiratory Exam Respiratory Exam: Clear to Ausculation Bilateral, NORMAL BREATHING PATTERN - Cardiovascular Exam Cardiovascular Exam: REGULAR RHYTHM, +S1, +S2, Murmur - Neurological Exam Neurological Exam: Alert, Awake Additional comments: Speech: Minimal slurring Motor: LLE 4+/5 LUE 5/5 RUE, RLE 5/5 sensory: intact [id number] coordination: intact Rapid alt movement: intact - Psychiatric Exam Psychiatric exam: Normal Affect, Normal Mood - Skin Skin Exam: Dry, Warm Assessment and Plan - Assessment and Plan (Free Text) Plan: Mr Eren Alves, 82 M, with PMH HTN, Gout, PAD s/p stent in right external iliac artery, with Neuropathy on lyrica, prostate cancer s/p prostate removal, DVT on warfarin, memory loss presents to the ED c/o lightheadedness with weakness of both legs. ROS (+) occasional choking while eating. Physical examination review LLE motor 4/5. On admitssion, pt was bradycardic @ 42-52. BP 162/75. U/A (+) ketone. CT head: lacunar infarct in right basal ganglia, indeterminate age, no hemorrhage. Noted leukopenia at 3.8. Denied fever/chills, dysuria. 1. Acute R basal ganglia ischemic stroke - MRI head: Acute 8x14mm infarct in R basa ganlia in proximal MCA distribution - Continue ASA 81; Lipitor increased to 40; Continue warfarin for stroke prevention - Keep SBP 120-130 - Maintain glucose 140-180 - Continue PT/OT/ST - Recommend subacute rehab 2. Bradycardia, Asymptomatic Ischemic dilated cardiomyopathy, EF35% - bystolic on hold per primary - Cardiology referral - Tele: Sinus bradycardia 3. Weakness of both legs possibly secondary to deconditioned stated superimposed underlying lumbosacral DJD and lumbar central stenosis - MRI lumbar: Moderate central stenosis L3-L5 - MRI thoracic: unremarkable s/r/d/w Dr. Barron <Eugene Barron - Last Filed: 12/17/17 12:08> Objective - Vital Signs/Intake and Output Vital Signs (last 24 hours): Temp Pulse Resp BP Pulse Ox 97.8 F 67 20 132/67 96 12/17/17 09:21 12/17/17 10:00 12/17/17 09:21 12/17/17 09:21 12/17/17 09:21 Intake and Output: 12/17/17 12/17/17 06:59 18:59 Intake Total 420 Output Total 825 Balance -405 - Medications Medications: Current Medications Allopurinol (Zyloprim) 300 mg PO DAILY [facility] Last Admin: 12/17/17 09:09 Dose: 300 mg Amlodipine Besylate (Norvasc) 10 mg PO DAILY [facility] Last Admin: 12/17/17 09:08 Dose: 10 mg Aspirin (Ecotrin) 81 mg PO DAILY [facility] Last Admin: 12/17/17 09:08 Dose: 81 mg Atorvastatin Calcium (Lipitor) 80 mg PO DIN [facility] Last Admin: 12/16/17 17:03 Dose: 80 mg Doxazosin Mesylate (Cardura) 4 mg PO DAILY [facility] Last Admin: 12/17/17 09:07 Dose: 4 mg Losartan Potassium (Cozaar) 100 mg PO DAILY [facility] Last Admin: 12/17/17 09:07 Dose: 100 mg Non-Formulary Medication (Donepezil Hcl [Aricept Odt]) 5 mg PO DAILY [facility] Last Admin: 12/17/17 09:08 Dose: Not Given Pantoprazole Sodium (Protonix Ec Tab) 40 mg PO 0600 [facility] Last Admin: 12/17/17 05:54 Dose: 40 mg Pregabalin (Lyrica) 75 mg PO DAILY [facility] Last Admin: 12/17/17 09:08 Dose: 75 mg Warfarin Sodium (Coumadin) 6 mg PO 1800 [facility] PRN Reason: Protocol Last Admin: 12/16/17 17:03 Dose: 6 mg - Labs Labs: 12/17/17 05:45 12/17/17 05:45 PT 23.9 SECONDS (9.4-12.5) H 12/17/17 09:55 INR 2.05 (0.93-1.08) H 12/17/17 09:55 APTT 34.9 Seconds (25.1-36.5) 12/14/17 17:38 Attending/Attestation - Attestation I have personally seen and examined this patient.: Yes I have fully participated in the care of the patient.: Yes I have reviewed all pertinent clinical information, including history, physical exam and plan: Yes
[2017-12-17] MEDS: DONEPEZIL HCL 5 MG PO SCH (09:08)
[2017-12-17 09:10] VITALS: BP 132/67
[2017-12-17 09:22] VITALS: TEMP 97.8; O2SAT 96
[2017-12-17 10:06] LABS: INR 2.05 (0.93-1.08); PROTHROMBIN TIME 23.9 SECONDS (9.4-12.5)
[2017-12-17 10:46] VITALS: PULSE 67
--- NOTE | 2017-12-17 11:34 | PN ---
DATE: 12/17/2017 CARDIOLOGY FOLLOWUP SUBJECTIVE: The patient with transient bradycardia last night while he was sleeping. No hemodynamic sequelae. Currently, the patient is in bed without shortness of breath, without dizziness. PHYSICAL EXAMINATION VITAL SIGNS: Blood pressure is 132/67, the heart rate is 73, normal sinus rhythm. NECK: Negative JVD. LUNGS: Without rales. HEART: S1 and S2. EXTREMITIES: Without edema. LABORATORY DATA: BUN and creatinine are unremarkable. Hemoglobin is 14.5. IMPRESSION AND PLAN: 1. Status post transient ischemic attack. 2. Asymptomatic bradycardia. 3. History of hypertension. 4. Coronary artery disease. 5. Stable angina. Given these findings, we will discontinue telemetry today. From a cardiac perspective, no further cardiac workup is indicated at this time. Dalton Sheets MD
--- NOTE | 2017-12-17 12:30 | CP.PCM.PN ---
Subjective - Date & Time of Evaluation Date of Evaluation: 12/17/17 Time of Evaluation: 09:00 - Subjective Subjective: Neurology PGY-[address] Barron See pt with and pt. Pt states that his strength has improved. Objective - Vital Signs/Intake and Output Vital Signs (last 24 hours): Temp Pulse Resp BP Pulse Ox 97.8 F 67 20 132/67 96 12/17/17 09:21 12/17/17 10:00 12/17/17 09:21 12/17/17 09:21 12/17/17 09:21 Intake and Output: 12/17/17 12/17/17 06:59 18:59 Intake Total 420 Output Total 825 Balance -405 - Medications Medications: Current Medications Allopurinol (Zyloprim) 300 mg PO DAILY [facility] Last Admin: 12/17/17 09:09 Dose: 300 mg Amlodipine Besylate (Norvasc) 10 mg PO DAILY [facility] Last Admin: 12/17/17 09:08 Dose: 10 mg Aspirin (Ecotrin) 81 mg PO DAILY [facility] Last Admin: 12/17/17 09:08 Dose: 81 mg Atorvastatin Calcium (Lipitor) 80 mg PO DIN [facility] Last Admin: 12/16/17 17:03 Dose: 80 mg Doxazosin Mesylate (Cardura) 4 mg PO DAILY [facility] Last Admin: 12/17/17 09:07 Dose: 4 mg Losartan Potassium (Cozaar) 100 mg PO DAILY [facility] Last Admin: 12/17/17 09:07 Dose: 100 mg Non-Formulary Medication (Donepezil Hcl [Aricept Odt]) 5 mg PO DAILY [facility] Last Admin: 12/17/17 09:08 Dose: Not Given Pantoprazole Sodium (Protonix Ec Tab) 40 mg PO 0600 [facility] Last Admin: 12/17/17 05:54 Dose: 40 mg Pregabalin (Lyrica) 75 mg PO DAILY [facility] Last Admin: 12/17/17 09:08 Dose: 75 mg Warfarin Sodium (Coumadin) 6 mg PO 1800 [facility] PRN Reason: Protocol Last Admin: 12/16/17 17:03 Dose: 6 mg - Labs Labs: 12/17/17 05:45 12/17/17 05:45 PT 23.9 SECONDS (9.4-12.5) H 12/17/17 09:55 INR 2.05 (0.93-1.08) H 12/17/17 09:55 APTT 34.9 Seconds (25.1-36.5) 12/14/17 17:38 - Constitutional Appears: Well - Head Exam Head Exam: ATRAUMATIC, NORMAL INSPECTION, NORMOCEPHALIC - Eye Exam Eye Exam: EOMI, Normal appearance, PERRL Pupil Exam: NORMAL ACCOMODATION - ENT Exam ENT Exam: Mucous Membranes Moist - Neck Exam Additional comments: supple - Respiratory Exam Respiratory Exam: Clear to Ausculation Bilateral, NORMAL BREATHING PATTERN - Cardiovascular Exam Cardiovascular Exam: REGULAR RHYTHM, +S1, +S2, Murmur - GI/Abdominal Exam GI & Abdominal Exam: Soft, Normal Bowel Sounds. absent: Tenderness - Neurological Exam Neurological Exam: Alert, Awake, CN II-XII Intact, Oriented x3 Additional comments: Speech: no aphasia Motor: LLE 4+/5 LUE 5/5 RUE, RLE 5/5 sensory: intact [id number] coordination: intact Rapid alt movement: intact - Psychiatric Exam Psychiatric exam: Normal Affect, Normal Mood - Skin Skin Exam: Dry, Warm
--- NOTE | 2017-12-17 21:47 | CP.PCM.DIS ---
<Jules Samaniego - Last Filed: 12/17/17 21:40> Provider - Provider Date of Admission: 12/15/17 13:01 Attending physician: Onesimo Garces MD Primary care physician: Master Gómez MD Consults: Neuro: Beatrice Cardio: Sudeep Time Spent in preparation of Discharge (in minutes): 45 Diagnosis - Discharge Diagnosis (1) Lacunar infarct, acute Status: Acute Hospital Course - Lab Results Lab Results: Most Recent Lab Values WBC 3.8 10^3/ul (4.5-11.0) L 12/17/17 05:45 RBC 4.40 10^6/uL (3.5-6.1) 12/17/17 05:45 Hgb 14.5 g/dL (14.0-18.0) 12/17/17 05:45 Hct 43.0 % (42.0-52.0) 12/17/17 05:45 MCV 97.7 fl (80.0-105.0) 12/17/17 05:45 MCH 33.0 pg (25.0-35.0) 12/17/17 05:45 MCHC 33.7 g/dl (31.0-37.0) 12/17/17 05:45 RDW 12.7 % (11.5-14.5) 12/17/17 05:45 Plt Count 137 10^3/uL (120.0-450.0) 12/17/17 05:45 MPV 11.4 fl (7.0-11.0) H 12/17/17 05:45 Gran % 29.8 % (50.0-68.0) L 12/17/17 05:45 Lymph % (Auto) 46.9 % (22.0-35.0) H 12/17/17 05:45 Titus % (Auto) 15.7 % (1.0-6.0) H 12/17/17 05:45 Eos % (Auto) 7.3 % (1.5-5.0) H 12/17/17 05:45 Baso % (Auto) 0.3 % (0.0-3.0) 12/17/17 05:45 Gran # 1.14 (1.4-6.5) L 12/17/17 05:45 Lymph # (Auto) 1.8 (1.2-3.4) 12/17/17 05:45 Titus # (Auto) 0.6 (0.1-0.6) 12/17/17 05:45 Eos # (Auto) 0.3 (0.0-0.7) 12/17/17 05:45 Baso # (Auto) 0.01 K/mm3 (0.0-2.0) 12/17/17 05:45 PT 23.9 SECONDS (9.4-12.5) H 12/17/17 09:55 INR 2.05 (0.93-1.08) H 12/17/17 09:55 APTT 34.9 Seconds (25.1-36.5) 12/14/17 17:38 Sodium 142 mmol/L (132-148) 12/17/17 05:45 Potassium 3.9 mmol/L (3.6-5.0) 12/17/17 05:45 Chloride 105 mmol/L (98-107) 12/17/17 05:45 Carbon Dioxide 27 mmol/L (21-33) 12/17/17 05:45 Anion Gap 14 (10-20) 12/17/17 05:45 BUN 13 mg/dL (7-21) 12/17/17 05:45 Creatinine 1.0 mg/dl (0.8-1.5) 12/17/17 05:45 Est GFR ( Amer) > 60 12/17/17 05:45 Est GFR (Non-Af Amer) > 60 12/17/17 05:45 Random Glucose 87 mg/dL (70-110) 12/17/17 05:45 Calcium 9.3 mg/dL (8.4-10.5) 12/17/17 05:45 Phosphorus 3.5 mg/dL (2.5-4.5) 12/16/17 16:45 Magnesium 1.9 mg/dL (1.7-2.2) 12/16/17 16:45 Total Bilirubin 0.7 mg/dL (0.2-1.3) 12/17/17 05:45 AST 34 U/L (17-59) 12/17/17 05:45 ALT 27 U/L (7-56) 12/17/17 05:45 Alkaline Phosphatase 74 U/L (38-126) 12/17/17 05:45 Lactate Dehydrogenase 444 U/L (333-699) 12/14/17 17:38 Total Creatine Kinase 181 U/L (35-230) 12/14/17 17:38 Troponin I 0.02 ng/mL D 12/15/17 23:12 Total Protein 6.6 g/dL (5.8-8.3) 12/17/17 05:45 Albumin 3.4 g/dL (3.0-4.8) 12/17/17 05:45 Globulin 3.2 gm/dL 12/17/17 05:45 Albumin/Globulin Ratio 1.1 (1.1-1.8) 12/17/17 05:45 Triglycerides 138 mg/dL (35-160) 12/15/17 06:50 Cholesterol 175 mg/dL (130-200) 12/15/17 06:50 LDL Cholesterol Direct 115 mg/dL (0-129) 12/15/17 06:50 HDL Cholesterol 27 mg/dL (29-60) L 12/15/17 06:50 Vitamin B12 306 pg/mL (239-931) 12/14/17 17:38 Folate 7.7 ng/mL 12/14/17 17:38 TSH 3rd Generation 1.65 mIU/mL (0.46-4.68) 12/15/17 08:00 Urine Color Yellow (YELLOW) 12/14/17 18:54 Urine Appearance Clear (CLEAR) 12/14/17 18:54 Urine pH 6.0 (4.7-8.0) 12/14/17 18:54 Ur Specific [place] >= 1.030 (1.005-1.035) 12/14/17 18:54 Urine Protein Trace mg/dL (<30 mg/dL) H 12/14/17 18:54 Urine Glucose (UA) Negative mg/dL (NEGATIVE) 12/14/17 18:54 Urine Ketones Trace mg/dL (NEGATIVE) H 12/14/17 18:54 Urine Blood Negative (NEGATIVE) 12/14/17 18:54 Urine Nitrate Negative (NEGATIVE) 12/14/17 18:54 Urine Bilirubin Small (NEGATIVE) H 12/14/17 18:54 Urine Urobilinogen 0.2 E.U./dL (<1 E.U./dL) 12/14/17 18:54 Ur Leukocyte Esterase Negative Mary/uL (NEGATIVE) 12/14/17 18:54 Urine RBC 0 - 2 /hpf (0-2) 12/14/17 18:54 Urine WBC Negative /hpf (0-6) 12/14/17 18:54 Ur Epithelial Cells 0 - 2 /hpf (0-5) 12/14/17 18:54 - Hospital Course Hospital Course: 82 year old male with past medical history of HTN, Gout, Neuropathy, prostate cancer s/p prostatectomy, DVT, PAD s/p stent in right external iliac artery, CHF (EF 35%) with dilated cardiomyopathy, paroxysmal atrial fibrillation, and memory loss presented to the ED with several days of weakness in the legs. Patient had stated that the weakness began 3 days prior to admission and is in both legs, associated with sudden onset of slurred speech, which resolved spontaneously, prior to presentation in the ER. R basal gangliar lacunar infarct was noted on CT head. Subsequent MRI showed an acute 8 x 14 mm infarct in the right basal ganglia in the distribution of the proximal MCA. He was subsequently started on aspirin, and the dose of his statin increased. Lumbar spine MRI was also done but showed only chronic changes that did not correlate with his acute/sudden onset symptoms. Patient was observed during hospitalization with some minimal improvement noted on physical exam, without signs of progressive ischemia or hemorrhagic conversion. He did have several episodes of bradycardia and was taken off of his beta roddy. Today, the patient reports some subjective improvement in his strength. He denies any headache, dizziness, confusion, vision changes, worsening weakness, numbness, chest pain, shortness of breath, palpitations, abdominal pain, nausea , vomiting, diarrhea, constipation. The patient was given new prescriptions for adjusted medications, and was given instructions on follow up. All questions were answered to his satisfaction and he was discharged to home. Discharge Exam - Head Exam Head Exam: ATRAUMATIC, NORMAL INSPECTION, NORMOCEPHALIC - Eye Exam Eye Exam: EOMI, Normal appearance, PERRL - ENT Exam ENT Exam: Mucous Membranes Moist - Neck Exam Neck exam: Normal Inspection - Respiratory Exam Respiratory Exam: Clear to PA & Lateral, NORMAL BREATHING PATTERN - Cardiovascular Exam Cardiovascular Exam: Irregular Rhythm, +S1, +S2. absent: Bradycardia, Tachycardia - GI/Abdominal Exam GI & Abdominal Exam: Normal Bowel Sounds, Soft. absent: Tenderness - Extremities Exam Extremities exam: normal inspection - Neurological Exam Neurological exam: Alert, CN II-XII Intact, Oriented x3 Additional comments: Unchanged from yesterday - Psychiatric Exam Psychiatric exam: Normal Affect, Normal Mood - Skin Skin Exam: Dry, Intact, Normal Color Discharge Plan - Discharge Medications Prescriptions: Aspirin [Ecotrin] 81 mg PO DAILY #30 tabec Atorvastatin [Lipitor] 80 mg PO DAILY #30 tab - Follow Up Plan Condition: STABLE Disposition: HOME/ ROUTINE Instructions: Self Care Measures After a Stroke (DC), Bradycardia (DC), Stroke (DC) Additional Instructions: 1. Stop taking Bystolic 2. Continue taking Aspirin and the new higher dose of Lipitor 3. Follow up with Dr. Gómez within one week 4. Follow up with your systems analyst and your neurologist within 1 week 5. Continue taking all other medications as previously prescribed 6. For any new or worsening concerns, contact your PCP immediately or return to the ER Referrals: Master Gómez MD [Primary Care Provider] - <Onesimo Garces - Last Filed: 12/18/17 12:41> Provider - Provider Date of Admission: 12/15/17 13:01 Attending physician: Oneismo Garces MD Primary care physician: Master Gómez MD Hospital Course - Lab Results Lab Results: Most Recent Lab Values WBC 3.8 10^3/ul (4.5-11.0) L 12/17/17 05:45 RBC 4.40 10^6/uL (3.5-6.1) 12/17/17 05:45 Hgb 14.5 g/dL (14.0-18.0) 12/17/17 05:45 Hct 43.0 % (42.0-52.0) 12/17/17 05:45 MCV 97.7 fl (80.0-105.0) 12/17/17 05:45 MCH 33.0 pg (25.0-35.0) 12/17/17 05:45 MCHC 33.7 g/dl (31.0-37.0) 12/17/17 05:45 RDW 12.7 % (11.5-14.5) 12/17/17 05:45 Plt Count 137 10^3/uL (120.0-450.0) 12/17/17 05:45 MPV 11.4 fl (7.0-11.0) H 12/17/17 05:45 Gran % 29.8 % (50.0-68.0) L 12/17/17 05:45 Lymph % (Auto) 46.9 % (22.0-35.0) H 12/17/17 05:45 Titus % (Auto) 15.7 % (1.0-6.0) H 12/17/17 05:45 Eos % (Auto) 7.3 % (1.5-5.0) H 12/17/17 05:45 Baso % (Auto) 0.3 % (0.0-3.0) 12/17/17 05:45 Gran # 1.14 (1.4-6.5) L 12/17/17 05:45 Lymph # (Auto) 1.8 (1.2-3.4) 12/17/17 05:45 Titus # (Auto) 0.6 (0.1-0.6) 12/17/17 05:45 Eos # (Auto) 0.3 (0.0-0.7) 12/17/17 05:45 Baso # (Auto) 0.01 K/mm3 (0.0-2.0) 12/17/17 05:45 PT 23.9 SECONDS (9.4-12.5) H 12/17/17 09:55 INR 2.05 (0.93-1.08) H 12/17/17 09:55 APTT 34.9 Seconds (25.1-36.5) 12/14/17 17:38 Sodium 142 mmol/L (132-148) 12/17/17 05:45 Potassium 3.9 mmol/L (3.6-5.0) 12/17/17 05:45 Chloride 105 mmol/L (98-107) 12/17/17 05:45 Carbon Dioxide 27 mmol/L (21-33) 12/17/17 05:45 Anion Gap 14 (10-20) 12/17/17 05:45 BUN 13 mg/dL (7-21) 12/17/17 05:45 Creatinine 1.0 mg/dl (0.8-1.5) 12/17/17 05:45 Est GFR ( Amer) > 60 12/17/17 05:45 Est GFR (Non-Af Amer) > 60 12/17/17 05:45 Random Glucose 87 mg/dL (70-110) 12/17/17 05:45 Calcium 9.3 mg/dL (8.4-10.5) 12/17/17 05:45 Phosphorus 3.5 mg/dL (2.5-4.5) 12/16/17 16:45 Magnesium 1.9 mg/dL (1.7-2.2) 12/16/17 16:45 Total Bilirubin 0.7 mg/dL (0.2-1.3) 12/17/17 05:45 AST 34 U/L (17-59) 12/17/17 05:45 ALT 27 U/L (7-56) 12/17/17 05:45 Alkaline Phosphatase 74 U/L (38-126) 12/17/17 05:45 Lactate Dehydrogenase 444 U/L (333-699) 12/14/17 17:38 Total Creatine Kinase 181 U/L (35-230) 12/14/17 17:38 Troponin I 0.02 ng/mL D 12/15/17 23:12 Total Protein 6.6 g/dL (5.8-8.3) 12/17/17 05:45 Albumin 3.4 g/dL (3.0-4.8) 12/17/17 05:45 Globulin 3.2 gm/dL 12/17/17 05:45 Albumin/Globulin Ratio 1.1 (1.1-1.8) 12/17/17 05:45 Triglycerides 138 mg/dL (35-160) 12/15/17 06:50 Cholesterol 175 mg/dL (130-200) 12/15/17 06:50 LDL Cholesterol Direct 115 mg/dL (0-129) 12/15/17 06:50 HDL Cholesterol 27 mg/dL (29-60) L 12/15/17 06:50 Vitamin B12 306 pg/mL (239-931) 12/14/17 17:38 Folate 7.7 ng/mL 12/14/17 17:38 TSH 3rd Generation 1.65 mIU/mL (0.46-4.68) 12/15/17 08:00 Urine Color Yellow (YELLOW) 12/14/17 18:54 Urine Appearance Clear (CLEAR) 01/29/18 18:54 Urine pH 6.0 (4.7-8.0) 12/14/17 18:54 Ur Specific [place] >= 1.030 (1.005-1.035) 12/14/17 18:54 Urine Protein Trace mg/dL (<30 mg/dL) H 12/14/17 18:54 Urine Glucose (UA) Negative mg/dL (NEGATIVE) 12/14/17 18:54 Urine Ketones Trace mg/dL (NEGATIVE) H 12/14/17 18:54 Urine Blood Negative (NEGATIVE) 12/14/17 18:54 Urine Nitrate Negative (NEGATIVE) 12/14/17 18:54 Urine Bilirubin Small (NEGATIVE) H 12/14/17 18:54 Urine Urobilinogen 0.2 E.U./dL (<1 E.U./dL) 12/14/17 18:54 Ur Leukocyte Esterase Negative Mary/uL (NEGATIVE) 12/14/17 18:54 Urine RBC 0 - 2 /hpf (0-2) 12/14/17 18:54 Urine WBC Negative /hpf (0-6) 12/14/17 18:54 Ur Epithelial Cells 0 - 2 /hpf (0-5) 12/14/17 18:54 Attending/Attestation - Attestation I have personally seen and examined this patient.: Yes I have fully participated in the care of the patient.: Yes I have reviewed all pertinent clinical information, including history, physical exam and plan: Yes Notes (Text): I have seen and examine the patient at bedside. Agree with the above note with the following additions/ exceptions: Briefly this is 82 year old male with history of HTN, gout, neuropathy, prostate cancer s/p surgery, DVT, PAD s/p stent in right external iliac artery, CHF (EF35%), paroxysmal atrial fibrillation, mild cognitive impairment who came for evaluation of generalized weakness. CT head revealed right BG launar infarct indeterminate age. MRI brain revealed acute right basal ganglia infarct. Speech and swallow eval was done at bedside which he passed. Continue aspirin, lipitor and coumadin. MRI spine reviewed. PT recommeded JADE initially however PT was repeated and HWS recommended. His family was informed about that. VS revealed bradycardia. Bystolic is on hold. Will discuss with systems analyst. Urine culture revealed < [id number] colonies of GNR. Patient is asymptomatic. Will continue telemetry monitoring. Currently, HR is 60-65. Upon discharge patient will follow up with Dr Cuevas. Dr Onesimo Garces
== END 2017-12-17 16:10 | disposition home or self-care (01) | DRG 65 ==
LOC: ED 16:02 → ERH 22:33 → 5RSO 12-15 01:07 → 3RNO 12-15 12:00 → OBSVTOIN 12-15 13:01 → 3RNO 12-15 21:57
PROVIDERS: ADMIT Internal Medicine; ATTEND Hospitalist
DX: I63.9 Cerebral infarction, unspecified (principal); I42.0 Dilated cardiomyopathy; G62.9 Polyneuropathy, unspecified; I48.0 Paroxysmal atrial fibrillation; I50.9 Heart failure, unspecified; I11.0 Hypertensive heart disease with heart failure; G31.84 Mild cognitive impairment of uncertain or unknown etiology; E78.00 Pure hypercholesterolemia, unspecified; D72.819 Decreased white blood cell count, unspecified; I25.5 Ischemic cardiomyopathy; I25.118 Atherosclerotic heart disease of native coronary artery with other forms of angina pectoris; I73.9 Peripheral vascular disease, unspecified; M10.9 Gout, unspecified; R29.700 NIHSS score 0; R41.3 Other amnesia; R00.1 Bradycardia, unspecified; M48.061 Spinal stenosis, lumbar region without neurogenic claudication; M16.0 Bilateral primary osteoarthritis of hip; Z85.46 Personal history of malignant neoplasm of prostate; Z95.820 Peripheral vascular angioplasty status with implants and grafts; Z90.79 Acquired absence of other genital organ(s); Z87.891 Personal history of nicotine dependence